=== PATIENT | male | born 1960 | race Caucasian/White ===

== ENCOUNTER 2016-11-16 20:54 | Emergency (ER) | payer BC ==
[~2016-11-16] VITALS: Ht 177.8 cm; Wt 95.8 kg
[~2016-11-16 20:54] MED LIST: [UNRECOGNIZED DRUG - CODE] PO
[2016-11-16 21:02] VITALS: Ht 177.8 cm; Wt 95.8 kg
[2016-11-16] MEDS ORDERED: SODIUM CHLORIDE 0.9% 1000ML 1,000 ML IV STA (21:35)
[2016-11-16 21:40] LABS: MANUAL MICROSCOPIC REQUIRED? NO; REVIEW REQ? NO; URINE APPEARANCE CLEAR (CLEAR); URINE BILIRUBIN NEG (NEG); URINE COLOR YELLOW; URINE EPITHELIAL CELL AUTO 0-5 /lpf (0-5); URINE NITRITE NEG (NEG); URINE PH 5.5 (4.5-7.5); URINE SPECIFIC GRAVITY 1.019 (1.000-1.030); UROBILINOGEN NEG (NEG); ZZUR CULT IF INDIC CLEAN CATCH NO
[2016-11-16 21:40] LABS: BASO % 0.2 %; BASO ABS # 0.02 K/uL (0-0.2); COMPLETE YES; EOS % 0.7 %; IG% 0.2 %; LYMPH % 14.4 %; LYMPH ABS # 1.91 K/uL (1.2-3.4); MEAN CELL VOLUME 88.4 fL (80-100); MEAN CORPUSCULAR HEMOGLOBIN 31.7 pg (25-34); MEAN CORPUSCULAR HGB CONC 35.9 g/dl (32-36); MONO % 11.7 %; NEUT % 72.8 %; PLATELET COUNT 231 K/uL (130-400); RED BLOOD COUNT 4.98 M/uL (4.7-6.1); WHITE BLOOD COUNT 13.22 K/uL (4.8-10.8)
[2016-11-16 21:58] LABS: BUN/CREATININE RATIO 10.6 (10-20); CALCIUM 8.9 mg/dl (8.5-10.1); CREATININE 1.2 mg/dl (0.60-1.40); POTASSIUM 3.7 mmol/L (3.5-5.1)
[2016-11-16] MEDS ORDERED: MESA0.37 PO (22:08)
[2016-11-16] MEDS ORDERED: PRLSR20 PO (22:09)
[2016-11-16] MEDS ORDERED: HYOS1TAB PO (22:10)
[2016-11-16] MEDS ORDERED: ZNTT/150 PO (22:12)
[2016-11-16] MEDS ORDERED: ONDANSETRON INJ 2 MG/ML 2 ML VIAL IV STA (23:04)
[2016-11-16] MEDS ORDERED: HYDROmorphone INJ 0.5 MG/0.5 ML SYR IV STA (23:04)
[2016-11-16] MEDS ORDERED: OPTIRAY 320 IV PRN (23:15)
[2016-11-16 23:46] VITALS: TEMP 36.8
[2016-11-17] MEDS ORDERED: AMOXICILLIN/CLAVULANATE TAB 875 MG TAB PO STA (00:56)
[2016-11-17] MEDS ORDERED: NORCO 5/325MG HOME PACK PO ONE (01:00)
[2016-11-17] MEDS ORDERED: AMOX875T PO (01:02)
[2016-11-17 01:12] VITALS: BP 120/82; PULSE 91; O2SAT 94
--- NOTE | 2016-11-17 02:45 | EMERGENCY ROOM VISIT NOTE ---
History Report prepared by Lore: Telly Stuart Under the Supervision of: Dr. Rad Huggins M.D. First contact with patient: 21:35 Chief Complaint: ABDOMINAL PAIN Stated Complaint: IRRITABLE GUTS Nursing Triage Summary: Lower abdominal pain, patient took "3 times the dose of laxative" because he felt constipated. States pain was higher prior now lower abdominal pain. History of Ulcerative Colitits. Denies bloody stools. Also c/o hesitancy with urination. History of Present Illness The patient is a 56 year old male who presents to the Emergency Room with complaints of constant abdominal pain starting two nights ago. He currently rates his discomfort as a 6/10 in severity. The patient states that the pain does from his abdomen to his rectum. He additionally states that he has a history of ulcerative colitis, and he takes pills and suppository, and he has not had an episode for the past four years. He states that he thought that he was constipated due to a lot of cheese, however he has taken laxatives and flushed himself out. He additionally states that he has neck pain, though he states that it is chronic due to arthritis. Pt denies LOC, headache, fevers, chills, diaphoresis, visual changes, chest pain, breathing difficulties, nausea , vomiting, back pain, melena, hematochezia, urinary symptoms, numbness, weakness, lymphadenopathy, rash, or other complaints. Source of History: patient Onset: two nights ago Position: abdomen Symptom Intensity: 6/10 Timing: constant Review of Systems See HPI for pertinent positives and negatives. A total of ten systems were reviewed and were otherwise negative. Past Medical & Surgical Medical Problems: (1) Colitis (2) Esophagitis (3) s/p arthroscopic surgery right knee (4) Tobacco user Family History Diabetes mellitus FH: cancer FH: heart disease Hypertension Social History Smoking Status: Current Some Day Smoker Alcohol Use: occasionally Drug Use: none Marital Status: Housing Status: lives with family Occupation Status: employed Current/Historical Medications Scheduled Amoxicillin & Pot Clavulanate (Augmentin 875-125 mg), 875 MG PO BID Mesalamine (Apriso), 0.375 MG PO QID Omeprazole (Prilosec), 20 MG PO DAILY Scheduled PRN Hyoscyamine Sulfate (Levsin), 0.125 MG PO Q6H PRN for CRAMPING Ranitidine (Zantac), 150 MG PO BID PRN for GERD Allergies Coded Allergies: Latex (Verified Allergy, Intermediate, RASH, 08/13/12) Morphine (Verified Allergy, Intermediate, HIVES, 05/30/14) Physical Exam Vital Signs Date Time Temp Pulse Resp B/P Pulse Ox O2 Delivery O2 Flow Rate FiO2 11/17/16 01:12 91 16 120/82 94 11/17/16 00:34 92 18 104/73 95 Room Air 11/16/16 23:46 36.8 90 16 123/73 95 Room Air 11/16/16 22:18 36.8 88 16 131/75 96 Room Air 11/16/16 21:02 37.2 109 18 132/87 95 Room Air Physical Exam GENERAL: Awake, alert, well-appearing, in no distress HENT: Normocephalic, atraumatic. Oropharynx unremarkable. EYES: Normal conjunctiva. Sclera non-icteric. NECK: Supple. No nuchal rigidity. FROM. No JVD. RESPIRATORY: Clear to auscultation. CARDIAC: Regular rate, normal rhythm. Extremities warm and well perfused. Pulses equal. ABDOMEN: Left lower quadrant tenderness. Soft, non-distended. No rebound or guarding. No masses. RECTAL: Deferred. MUSCULOSKELETAL: Chest examination reveals no tenderness. The back is symmetrical on inspection without obvious abnormality. There is no CVA tenderness to palpation. No joint edema. LOWER EXTREMITIES: Calves are equal size bilaterally and non-tender. No edema. No discoloration. NEURO: Normal sensorium. No sensory or motor deficits noted. SKIN: No rash or jaundice noted. Medical Decision & Procedures ER Provider Diagnostic Interpretation: Radiology results as stated below per my review and radiologist interpretation CT ABDOMEN & PELVIS: Sigmoid diverticulitis with inflammatory changes. No abscess. Mesenteric and retroperitoneal nodes. Too small to characterize low attenuation focus in the right kidney. Laboratory Results 11/16/16 21:20 Red Blood Count 4.98, Mean Corpuscular Volume 88.4, Mean Corpuscular Hemoglobin 31.7, Mean Corpuscular Hemoglobin Concent 35.9, Mean Platelet Volume 10.0, Neutrophils (%) (Auto) 72.8, Lymphocytes (%) (Auto) 14.4, Monocytes (%) (Auto) 11.7, Eosinophils (%) (Auto) 0.7, Basophils (%) (Auto) 0.2, Neutrophils # (Auto ) 9.62, Lymphocytes # (Auto) 1.91, Monocytes # (Auto) 1.55, Eosinophils # (Auto ) 0.09, Basophils # (Auto) 0.02 11/16/16 21:20 Test 11/16/16 21:15 11/16/16 21:20 Urine Color YELLOW Urine Appearance CLEAR (CLEAR) Urine pH 5.5 (4.5-7.5) Urine Specific Randolph 1.019 (1.000-1.030) Urine Protein NEG (NEG) Urine Glucose (UA) NEG (NEG) Urine Ketones NEG (NEG) Urine Occult Blood NEG (NEG) Urine Nitrite NEG (NEG) Urine Bilirubin NEG (NEG) Urine Urobilinogen NEG (NEG) Urine Leukocyte Esterase TRACE (NEG) Urine WBC (Auto) 1-5 /hpf (0-5) Urine RBC (Auto) 0-4 /hpf (0-4) Urine Hyaline Casts (Auto) 1-5 /lpf (0-5) Urine Epithelial Cells (Auto) 0-5 /lpf (0-5) Urine Bacteria (Auto) NEG (NEG) White Blood Count 13.22 K/uL (4.8-10.8) Red Blood Count 4.98 M/uL (4.7-6.1) Hemoglobin 15.8 g/dL (14.0-18.0) Hematocrit 44.0 % (42-52) Mean Corpuscular Volume 88.4 fL (80-100) Mean Corpuscular Hemoglobin 31.7 pg (25-34) Mean Corpuscular Hemoglobin Concent 35.9 g/dl (32-36) Platelet Count 231 K/uL (130-400) Mean Platelet Volume 10.0 fL (7.4-10.4) Neutrophils (%) (Auto) 72.8 % Lymphocytes (%) (Auto) 14.4 % Monocytes (%) (Auto) 11.7 % Eosinophils (%) (Auto) 0.7 % Basophils (%) (Auto) 0.2 % Neutrophils # (Auto) 9.62 K/uL (1.4-6.5) Lymphocytes # (Auto) 1.91 K/uL (1.2-3.4) Monocytes # (Auto) 1.55 K/uL (0.11-0.59) Eosinophils # (Auto) 0.09 K/uL (0-0.5) Basophils # (Auto) 0.02 K/uL (0-0.2) RDW Standard Deviation 41.1 fL (36.4-46.3) RDW Coefficient of Variation 12.9 % (11.5-14.5) Immature Granulocyte % (Auto) 0.2 % Immature Granulocyte # (Auto) 0.03 K/uL (0.00-0.02) Anion Gap 10.0 mmol/L (3-11) Est Creatinine Clear Calc Drug Dose 78.9 ml/min Estimated GFR () 77.3 Estimated GFR (Non- 66.7 BUN/Creatinine Ratio 10.6 (10-20) Calcium Level 8.9 mg/dl (8.5-10.1) Total Bilirubin 0.9 mg/dl (0.2-1) Aspartate Amino Transf (AST/SGOT) 13 U/L (15-37) Alanine Aminotransferase (ALT/SGPT) 34 U/L (12-78) Alkaline Phosphatase 89 U/L (45-117) Total Protein 7.8 gm/dl (6.4-8.2) Albumin 3.8 gm/dl (3.4-5.0) Globulin 4.0 gm/dl (2.5-4.0) Albumin/Globulin Ratio 1.0 (0.9-2) Lipase 89 U/L (73-393) Laboratory results reviewed by me Medications Administered Medications (Trade) Dose Ordered Sig/Luci Route Start Time Stop Time Status Last Admin Dose Admin Sodium Chloride (Nss 1000ml) 1,000 ml @ 999 mls/hr Q1H1M STAT IV 11/16/16 21:35 11/16/16 22:35 DC 11/16/16 21:47 999 MLS/HR Hydromorphone HCl (Dilaudid Inj) 0.5 mg NOW STAT IV 11/16/16 23:04 11/16/16 23:05 DC 11/16/16 23:19 0.5 MG Ondansetron HCl (Zofran Inj) 4 mg NOW STAT IV 11/16/16 23:04 11/16/16 23:05 DC 11/16/16 23:19 4 MG Amoxicillin/ Clavulanate Potassium (Augmentin Tab) 875 mg NOW STAT PO 11/17/16 00:56 11/17/16 00:59 DC 11/17/16 01:09 875 MG Acetaminophen/ Hydrocodone Bitart ([place] 5/325mg Home Pack) 1 homepack UD ONCE PO 11/17/16 01:00 11/17/16 01:01 DC 11/17/16 01:08 1 HOMEPACK ED Course 2135: Sodium Chloride 1000 ml @ 999 mls/hr IV 2255: The patient was evaluated in room B2. A complete history and physical exam was performed. 2304: Zofran Inj 4mg IV, Dilaudid Inj 0.5mg IV 0056: Augmentin Tab 875mg PO 0100: [place] 5/325mg 1 Home Pack PO 0104: I reevaluated the patient. Discussed results and discharge instructions: He verbalized understanding and agreement. The patient is ready for discharge. Medical Decision Triage Nursing notes reviewed. The patient's presentation and history were concerning for abdominal pain. Etiologies such as appendicitis, diverticulitis, obstruction, inflammatory bowel disease, renal colic, PUD, biliary pathology, pancreatitis, mesenteric ischemia, aortic pathology, infections, genitourinary, UTI, perforated viscus, as well as others were entertained. the patient was evaluated. Clinically was doing well. He was hydrated. He was given Dilaudid and Zofran. This worked well to control his pain. The patient had a mild leukocytosis on CBC. Chemistry panel was unremarkable. LFTs and lipase were unremarkable. The patient underwent CT imaging and this revealed diverticulitis. No abscess or perforation. The patient was treated with Augmentin as he declined metronidazole in the past as this made him very sick. The patient was given a home pack of [place]. He'll follow-up closely as an outpatient. If he worsens in any way he will be back. By the evaluation outlined above other emergent etiologies such as those listed in the differential, as well as others, were deemed relatively unlikely. The patient and were informed about the findings as listed above. All questions were answered and they were very pleased with the treatment. Return instructions were outlined and the patient was discharged in stable condition. The patient was referred to to his PCP for follow-up this week for a recheck of the current condition. The chart was completed utilizing [employer] voice recognition software. Grammatical errors, random word insertions, pronoun errors, and incomplete sentences are an occasional consequence of this system due to software limitations, ambient noise, and hardware issues. Any formal questions or concerns about the content, text, or information contained within the body of this dictation should be directly addressed to the physician for clarification. Impression Primary Impression: Diverticulitis Scribe Attestation The scribe's documentation has been prepared under my direction and personally reviewed by me in its entirety. I confirm that the note above accurately reflects all work, treatment, procedures, and medical decision making performed by me. Departure Information Dispostion Home / Self-Care Prescriptions Amoxicillin & Pot Clavulanate (Augmentin 875-125 mg) 1 Tab Tab 875 MG PO BID, #18 TAB Prov: Rad Huggins MD 11/17/16 Referrals Benjamin Blue MD (PCP) Forms Call Back Authorization, HOME CARE DOCUMENTATION FORM, IMPORTANT VISIT INFORMATION Patient Instructions [facility] Additional Instructions DIVERTICULITIS INSTRUCTIONS: DO NOT drive, drink alcohol, operate machinery, or perform dangerous activities today. You were given medications in the ER that can affect your ability to safely function or operate a vehicle. Amoxicillin Clavulanate (Augmentin) 875mg: Take one pill twice daily for 10 days for your bowel infection. All antibiotics can cause diarrhea. If this occurs and you feel worse or it does not resolve in 1-2 days follow up with your doctor or return to the Emergency Department as this could be signs of serious underlying problems. Any medication can cause an allergic reaction, stop the pills immediately and return to the ER for rash, hives, breathing difficulties, or swelling. Hydrocodone/acetaminophen 5/325mg: Take 1-2 pills every 6 hours as needed for pain. Avoid additional Acetaminophen/Tylenol, alcohol, operating machinery or dangerous equipment, working on ladders or roofs, DRIVING, or situations where being under the influence may be dangerous. It is recommended to use a stool softener such as Colace, 100mg twice daily while taking this medication to avoid constipation. Ibuprofen(Motrin, Advil) may be used for fever or pain. Use 600mg every six hours as needed. Take with food. Avoid using more than 2400mg in a 24 hour period. Do not use 2400mg per day for more than three consecutive days without physician direction. Prolonged inappropriate use can lead to stomach upset or ulcers. Rest and drink plenty of fluids as tolerated. Slow sips of water or sports drinks are recommended instead of large amounts all at once. Continue current medications. Once your stomach is settled start with a clear liquid diet (jello, soup broth, etc.) and then advance as tolerated. You should avoid full, heavy meals for about 24 hrs from the time your symptoms resolved. Return to the ER immediately for worsening or persistent abdominal pain, vomiting, fevers, chest pains, difficulty breathing, black or bloody stools, worsening of your condition, or as needed. Follow up with your primary physician in 2-3 days for a recheck of your current condition.
--- NOTE | 2016-11-17 06:50 | DIAGNOSTIC IMAGING REPORT ---
ABDOMEN AND PELVIS CT WITH IV CONTRAST CT DOSE: 635.68 mGy.cm HISTORY: Pain. Nausea. lower abd pain, h/o of colitis. Elevated WBC TECHNIQUE: Multiaxial CT images of the abdomen and pelvis were performed following the use of intravenous contrast. COMPARISON STUDY: 72,014 FINDINGS: Lung bases are clear. Liver spleen and pancreas are unremarkable. Several small indeterminate retroperitoneal nodes unchanged from the prior study. Bowel pattern within the abdomen is nonobstructive. Within the pelvis there is evidence for acute proximal to mid sigmoid diverticulitis. Moderate pericolonic infiltrative change. No evidence for abscess collection or obstruction. Kidneys negative for hydronephrosis. Small upper pole right renal cortical cyst. IMPRESSION: Acute proximal to mid sigmoid diverticulitis. Moderate pericolonic infiltrative infiltrative change. No evidence for abscess collection or obstruction. Electronically signed by: Catrachito Duval M.D. 11/17/2016 6:49 AM Dictated Date/Time: 11/17/2016 6:47 AM
== END 2016-11-17 01:14 | disposition home or self-care (01) ==
LOC: C.EDB 20:55
DX: K57.92 Diverticulitis of intestine, part unspecified, without perforation or abscess without bleeding (principal); K51.90 Ulcerative colitis, unspecified, without complications; K20.9 Esophagitis, unspecified; F17.200 Nicotine dependence, unspecified, uncomplicated; Z98.890 Other specified postprocedural states; Z83.3 Family history of diabetes mellitus; Z82.49 Family history of ischemic heart disease and other diseases of the circulatory system; Z79.899 Other long term (current) drug therapy

== ENCOUNTER 2021-02-16 10:26 | Inpatient (IN) ==
[2021-02-16] MEDS ORDERED: SODIUM CHLORIDE 0.9% 1000ML 1,000 ML IV SCH ×2 (11:30→17:41)
[2021-02-16 11:35] LABS: BUN Creatinine Ratio 14.8 (10-20); Calcium 8.2 mg/dl (8.5-10.1); Creatinine Clr Calc Pharmacy 81.7 ml/min; Est GFR (African American) 85.4 ml/min; Est GFR (Non-African American) 73.7 ml/min; Magnesium 2.1 mg/dl (1.8-2.4); Potassium 3.5 mmol/L (3.5-5.1)
[2021-02-16] MEDS ORDERED: LORazepam 2 MG/4 ML VIAL IV STA (11:38)
[2021-02-16 11:51] LABS: Albumin Globulin Ratio 0.8 (0.9-2); Bilirubin,Total 1.1 mg/dl (0.2-1); Globulin 3.6 gm/dl (2.5-4.0); Phosphorus 2.1 mg/dl (2.5-4.9); Total Protein 6.6 gm/dl (6.4-8.2)
[2021-02-16] MEDS ORDERED: POT PHOSPHATE MONOBASIC W/ SOD TAB PO STA (11:54)
[2021-02-16] MEDS ORDERED: CALCIUM GLUCONATE 1,000 MG/60 ML BAG IV STA (11:55)
[2021-02-16 11:57] LABS: Eosinophils # (auto) 0.02 K/uL (0-0.5); Eosinophils % (auto) 0.6 %; Hematocrit (blood only) 39.4 % (42-52); Immature Granulocytes # (auto) 0.02 K/uL (0.00-0.02); Immature Granulocytes % (auto) 0.6 %; Lymphocytes # (auto) 0.36 K/uL (1.2-3.4); Lymphocytes % (auto) 10.9 %; Mean Corpuscular Hemoglobin 31.9 pg (25-34); Mean Corpuscular Volume 96.8 fL (80-100); Mean Platelet Volume 8.8 fL (7.4-10.4); Monocytes # (auto) 0.01 K/uL (0.11-0.59); Monocytes % (auto) 0.3 %; Neutrophils # (auto) 2.88 K/uL (1.4-6.5); Neutrophils % (auto) 87.6 %; Platelet Count 189 K/uL (130-400); RDW Coefficient of Variation 14.6 % (11.5-14.5); RDW Standard Deviation 52.1 fL (36.4-46.3); Red Blood Count 4.07 M/uL (4.7-6.1); White Blood Count 3.29 K/uL (4.8-10.8)
[2021-02-16] MEDS: POTASSIUM CHLORIDE / WTR 10 MEQ/100 ML PLCT IV SCH ×2 (12:23→13:29)
[2021-02-16 13:28] LABS: Lyme Ab IgG w/WB Rflx Negative (Negative); Lyme Ab IgM w/WB Rflx Negative (Negative)
[2021-02-16] MEDS ORDERED: OPTIRAY 320 125ml IV ONE (14:01)
[2021-02-16] MEDS ORDERED: OPTIRAY 320 100ml IV ONE (14:01)
[2021-02-16] MEDS: METOPROLOL TARTRATE 1 MG/ML VIAL IV PRN ×2 (14:19→14:48)
--- NOTE | 2021-02-16 14:20 | CT Scan Report ---
CHEST CTA for PULMONARY ARTERIES CT DOSE: 1309.13 mGy.cm HISTORY: Atypical chest pain. TECHNIQUE: Multiaxial CT images of the chest were performed following the intravenous administration of contrast to evaluate the pulmonary arteries. Maximal intensity projection images were also obtaine d. A dose lowering technique was utilized adhering to the principles of ALARA. COMPARISON STUDY: None. FINDINGS: Normal caliber thoracic aorta with no evidence for dissection. Mild motion artifact results in suboptimal evaluation of the bibasilar segmental/subsegmental pulmonary arteries. However, no def inite filling defects within the pulmonary arteries to suggest a pulmonary embolus. Please refer to abdomen and pelvis CT for further evaluation of the abdominal structures. The thyroid gland e nhances normally. Normal caliber esophagus. The heart is normal in size. No pleural or pericardial ef fusions. A few prominent right paratracheal and right hilar lymph nodes which measure up to 9 mm in s hort axis diameter. No pneumothorax. The central airways are patent. A few bibasilar linear densities favor subsegmental atelectasis. Otherwise, no focal lung consolidations to suggest pneumonia. IMPRESSION: Mild motion artifact. However, no definite filling defects within the pulmonary arteries to suggest a pulmonary embolus. ACT 112: Negative or not required by law. Electronically signed by: Amor Harrison M.D. 02/16/2021 2:18 PM
--- NOTE | 2021-02-16 14:30 | CT Scan Report ---
ABDOMEN AND PELVIS CT WITH IV AND ORAL CONTRAST CT DOSE: HISTORY: Transabdominal pain. Ulcerative colitis flare. TECHNIQUE: Multiaxial CT images of the abdomen and pelvis were performed following the use of intrave nous and oral contrast. A dose lowering technique was utilized adhering to the principles of ALARA. COMPARISON STUDY: Abdomen and pelvis CT 01/21/2018. FINDINGS: No pneumoperitoneum. No pneumatosis. The liver, gallbladder, spleen, adrenal glands, and pa ncreas are unremarkable. The main portal vein is patent. Normal caliber abdominal aorta. There is mil d bilateral perinephric fat stranding/edema. This is slightly progressed in the interval. No hydronep hrosis. There is a 1 cm hypodense lesion within the upper pole the right kidney, unchanged. This favo rs a cyst. Focal heterogeneous area within the upper pole the left kidney remains unchanged and may r epresent scarring. A few prominent retroperitoneal lymph nodes are also stable and are therefore like ly benign. There is mild motion artifact. No pelvic free fluid. Moderate bladder wall thickening, unc hanged. Multiple colonic diverticula. Turd-ia-shupfaez bowel wall thickening of the descending colon with associated pericolonic fat stranding. Findings favor a nonspecific colitis and could be due to a n infectious or inflammatory process. The pericolonic fat stranding is most pronounced at the sigmoid colon. This is where the majority of the diverticula reside. Therefore, a superimposed acute diverti culitis could also have a similar appearance but is considered less likely. No evidence for bowel obs truction. Normal appendix. IMPRESSION: 1. Npad-ca-nkfamlwn bowel wall thickening of the descending colon and sigmoid colon with associated p ericolonic fat stranding. Findings favor a nonspecific colitis and could be due to an infectious or i nflammatory process. 2. The pericolonic fat stranding is most pronounced at the sigmoid colon. This is where the majority of the diverticula reside. Therefore, a superimposed acute diverticulitis could also have a similar a ppearance but is considered less likely. 3. Moderate bladder wall thickening, unchanged. Recommend correlation with urinalysis. 4. Mild bilateral perinephric edema/fat stranding has also slightly progressed. ACT 112: Negative or not required by law. Electronically signed by: Amor Harrison M.D. 02/16/2021 2:29 PM
--- NOTE | 2021-02-16 15:21 | Emergency Department Note ---
History of Present Illness General Chief complaint: Hand Injury/Pain Stated complaint: SHAKING /HAND NUMBNESS Time Seen by Provider: 02/16/21 11:13 Source: patient, family ( at the bedside) and RN notes reviewed Mode of arrival: ambulatory Limitations: no limitations History of Present Illness Provider complaint: Generalized weakness, shaking Maximum Pain Intensity: 0 This patient is a 60-year-old male who presents emergency department with complaints of diffuse shaking to the upper extremities. Patient woke up this morning and states he could not drink his coffee because he was shaking so much. Patient was evaluated in the emergency department yesterday and noted to have low magnesium and low phosphate. His electrolytes were repleted and he was hydrated with saline. Patient states he felt better but upon awakening this morning symptoms seem to develop again. He states he was able to eat dinner last night which was beef stew. He denies any fevers, chills, chest pain, s hortness of breath, vomiting. He does have history of ulcerative colitis and does have some diarrhea. 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 He has been on prednisone through gastroenterology which has improved his symptoms tremendously. He does deny blood in his stools. He states he did not receive the Covid vaccine. Home Medications Medication Instructions Recorded Confirmed Type dicyclomine 20 mg PO QID PRN 02/15/21 02/16/21 History losartan 50 mg PO HS 02/15/21 02/16/21 History omeprazole 20 mg PO DAILYBB 02/15/21 02/16/21 History prednisone 10 mg PO UD 02/15/21 02/16/21 History mesalamine 0.375 g PO QID 02/16/21 02/16/21 History Allergies Allergy/AdvReac Type Severity Reaction Status Date / Time latex Allergy Intermediate RASH Verified 02/16/21 12:26 morphine Allergy Intermediate HIVES Verified 02/16/21 12:26 Past Med/Surg History Medical History (Updated 02/19/21 @ 21:46 by Svetlana Matthews MD) Chronic neck pain Clostridium difficile infection Daily consumption of alcohol Dehydration Diverticulitis Esophagitis (Unknown) "EGD 2010 " HLD (hyperlipidemia) HTN (hypertension) Hypomagnesemia Hypophosphatemia Ulcerative colitis Surgical History (Updated 02/16/21 @ 17:01 by Gia Brar PA-C) H/O arthroscopic knee surgery Family History Father Prostate cancer Social History (Updated 02/16/21 @ 17:02 by Gia Brar PA-C) Smoking Status: Current every day smoker Tobacco Type: Cigars Second Hand Exposure: No; Hx Alcohol Use: Yes Alcohol type: wine Alcohol Intake Frequency: 4 or More x per/Week Alcohol Intake Frequency Comment: daily 1-2 drinks, last drink > 48 hrs Hx Substance Use: No Preferred Language: Monegasque Communication Ability: Effective Spiritual Minister Required: No Beliefs That Will Affect Care: None marital status: Current Living Situation: Spouse current occupational status: employed 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 and A total of 10 systems reviewed and were otherwise negative Physical Exam Vital Signs Vital Signs - 24 hr 02/16/21 10:42 02/16/21 11:04 02/16/21 11:10 Temperature 36.5 C Temperature Source Temporal Artery Scan Pulse Rate 138 H 133 H 130 H Pulse Rate from SpO2 Sensor 134 H 132 H Respiratory Rate 20 29 H 18 Respiratory Effort / Characteristics Non-Labored Respiratory Depth Normal Blood Pressure 129/68 131/68 Blood Pressure Mean 88 89 Pulse Oximetry 97 97 95 Oxygen Delivery Method Room Air Sepsis Recent Fever Within 48 Hours No Sepsis New/Unexplained Change in Mental Status N/A Sepsis Action Taken by Nursing No Action Required 02/16/21 11:20 02/16/21 11:30 02/16/21 11:34 Temperature Temperature Source Pulse Rate 132 H 132 H 137 H Pulse Rate from SpO2 Sensor 132 H 132 H 137 H Respiratory Rate 15 23 19 Respiratory Effort / Characteristics Respiratory Depth Blood Pressure 129/71 126/75 Blood Pressure Mean 90 92 Pulse Oximetry 95 92 92 Oxygen Delivery Method Sepsis Recent Fever Within 48 Hours Sepsis New/Unexplained Change in Mental Status Sepsis Action Taken by Nursing 02/16/21 11:40 02/16/21 11:50 02/16/21 12:00 Temperature Temperature Source Pulse Rate 133 H 136 H 132 H Pulse Rate from SpO2 Sensor 134 H 136 H 130 H Respiratory Rate 21 30 H 28 H Respiratory Effort / Characteristics Respiratory Depth Blood Pressure 124/73 Blood Pressure Mean 90 Pulse Oximetry 96 94 90 Oxygen Delivery Method Sepsis Recent Fever Within 48 Hours Sepsis New/Unexplained Change in Mental Status Sepsis Action Taken by Nursing 02/16/21 12:10 02/16/21 12:20 02/16/21 12:30 Temperature Temperature Source Pulse Rate 135 H 128 H 136 H Pulse Rate from SpO2 Sensor 128 H 128 H Respiratory Rate 32 H 31 H 18 Respiratory Effort / Characteristics Respiratory Depth Blood Pressure 142/98 H Blood Pressure Mean 112 Pulse Oximetry 94 90 Oxygen Delivery Method Sepsis Recent Fever Within 48 Hours Sepsis New/Unexplained Change in Mental Status Sepsis Action Taken by Nursing 02/16/21 12:40 02/16/21 12:50 02/16/21 13:00 Temperature Temperature Source Pulse Rate 130 H 137 H 133 H Pulse Rate from SpO2 Sensor 126 H 135 H 129 H Respiratory Rate 32 H 17 26 H Respiratory Effort / Characteristics Respiratory Depth Blood Pressure Blood Pressure Mean Pulse Oximetry 91 95 94 Oxygen Delivery Method Sepsis Recent Fever Within 48 Hours Sepsis New/Unexplained Change in Mental Status Sepsis Action Taken by Nursing 02/16/21 13:10 02/16/21 13:20 02/16/21 13:30 Temperature Temperature Source Pulse Rate 128 H 130 H 127 H Pulse Rate from SpO2 Sensor 135 H 130 H 127 H Respiratory Rate 14 19 26 H Respiratory Effort / Characteristics Respiratory Depth Blood Pressure 120/64 Blood Pressure Mean 82 Pulse Oximetry 94 96 94 Oxygen Delivery Method Sepsis Recent Fever Within 48 Hours Sepsis New/Unexplained Change in Mental Status Sepsis Action Taken by Nursing 02/16/21 13:40 02/16/21 13:50 02/16/21 14:12 Temperature Temperature Source Pulse Rate 121 H 126 H 123 H Pulse Rate from SpO2 Sensor 121 H 126 H 119 H Respiratory Rate 28 H 16 23 Respiratory Effort / Characteristics Respiratory Depth Blood Pressure Blood Pressure Mean Pulse Oximetry 95 93 94 Oxygen Delivery Method Sepsis Recent Fever Within 48 Hours Sepsis New/Unexplained Change in Mental Status Sepsis Action Taken by Nursing 02/16/21 14:20 02/16/21 14:21 02/16/21 14:25 Temperature Temperature Source Pulse Rate 120 H 120 H 107 H Pulse Rate from SpO2 Sensor 120 H 120 H 107 H Respiratory Rate 36 H 29 H 28 H Respiratory Effort / Characteristics Respiratory Depth Blood Pressure 119/67 113/70 Blood Pressure Mean 84 84 Pulse Oximetry 97 96 95 Oxygen Delivery Method Sepsis Recent Fever Within 48 Hours Sepsis New/Unexplained Change in Mental Status Sepsis Action Taken by Nursing 02/16/21 14:30 02/16/21 14:40 02/16/21 14:49 Temperature Temperature Source Pulse Rate 103 H 108 H 110 H Pulse Rate from SpO2 Sensor 103 H 108 H 110 H Respiratory Rate 26 H 24 28 H Respiratory Effort / Characteristics Respiratory Depth Blood Pressure 100/70 110/66 Blood Pressure Mean 80 80 Pulse Oximetry 94 94 94 Oxygen Delivery Method Sepsis Recent Fever Within 48 Hours Sepsis New/Unexplained Change in Mental Status Sepsis Action Taken by Nursing 02/16/21 14:50 02/16/21 15:00 02/16/21 15:10 Temperature Temperature Source Pulse Rate 110 H 111 H 112 H Pulse Rate from SpO2 Sensor 110 H 111 H 112 H Respiratory Rate 22 26 H 25 H Respiratory Effort / Characteristics Respiratory Depth Blood Pressure 92/63 L Blood Pressure Mean 72 Pulse Oximetry 94 93 94 Oxygen Delivery Method Sepsis Recent Fever Within 48 Hours Sepsis New/Unexplained Change in Mental Status Sepsis Action Taken by Nursing 02/16/21 15:20 02/16/21 15:42 02/16/21 15:50 Temperature Temperature Source Pulse Rate 111 H 112 H 111 H Pulse Rate from SpO2 Sensor 109 H 112 H 111 H Respiratory Rate 23 23 31 H Respiratory Effort / Characteristics Respiratory Depth Blood Pressure 105/68 Blood Pressure Mean 80 Pulse Oximetry 94 95 94 Oxygen Delivery Method Sepsis Recent Fever Within 48 Hours Sepsis New/Unexplained Change in Mental Status Sepsis Action Taken by Nursing Vital signs reviewed. General: chronically ill-appearing 60 yo male, in no significant distress. HEENT: No scleral icterus, PERRLA, neck supple. Atraumatic. Cardiovascular: Regular rate and rhythm, no extra sounds. Pulmonary: Clear to auscultation bilaterally, normal work of breathing. Abdomen: Soft, nontender, nondistended, positive bowel sounds. Musculoskeletal: Atraumatic, no peripheral edema. Neurologic: Patient awake alert and oriented x 3, full strength in all 4 ext remities. Cranial nerves 2 through 12 grossly intact. Mild tremor peripherally noted. Skin: Warm, dry, no rash Course Administered Medications Enoxaparin Sodium (Enoxaparin Inj 40 Mg/0.4 Ml Syr) 40 mg SQ HS [facility] Stop: 03/19/21 20:59 Last Admin: 02/18/21 20:06 Dose: 40 mg Documented by: [id number] Admin: 02/17/21 22:04 Dose: Not Given Documented by: [id number] Folic Acid (Folic Acid 1 Mg Tab) 1 mg PO QAM [facility] Stop: 03/18/21 18:29 Last Admin: 02/19/21 09:27 Dose: 1 mg Documented by: [id number] Admin: 02/18/21 08:37 Dose: 1 mg Documented by: [id number] Admin: 02/17/21 08:42 Dose: 1 mg Documented by: [id number] Admin: 02/16/21 20:56 Dose: 1 mg Documented by: [id number] Ertapenem 1,000 mg/ Sodium (Chloride) 60 mls @ 100 mls/hr IV Q24H [facility] Stop: 03/04/21 11:59 Last Infusion: 02/19/21 13:33 Dose: 0 mls/hr Documented by: [id number] Admin: 02/19/21 12:36 Dose: 100 mls/hr Documented by: [id number] Infusion: 02/18/21 13:24 Dose: 0 mls/hr Documented by: [id number] Admin: 02/18/21 12:48 Dose: 100 mls/hr Documented by: [id number] Losartan Potassium (Losartan Potassium 50 Mg Tab) 50 mg PO [facility] Stop: 03/21/21 20:59 Last Admin: 02/19/21 21:01 Dose: 50 mg Documented by: [id number] Mesalamine (Mesalamine 0.375gm 1 Ea) 1 ea PO QID [facility] Stop: 03/20/21 16:59 Last Admin: 02/19/21 21:02 Dose: 1 ea Documented by: [id number] Admin: 02/19/21 18:33 Dose: 1 ea Documented by: [id number] Admin: 02/19/21 12:35 Dose: 1 ea Documented by: [id number] Admin: 02/19/21 09:28 Dose: 1 ea Documented by: [id number] Admin: 02/18/21 20:05 Dose: 1 ea Documented by: [id number] Admin: 02/18/21 17:22 Dose: 1 ea Documented by: [id number] [facility]oprazole S[facility] ([facility] 40 Mg Tab[facility] Stop: 03/19/21 06:29 Last Admin: 02/19/21 05:47 Dose: 40 mg Documented by: [id number] Admin: 02/18/21 06:43 Dose: 40 mg Documented by: [id number] Admin: 02/17/21 06:07 Dose: 40 mg Documented by: [id number] Prednisone (Prednisone 10 Mg Tablet) 10 mg PO DAILY [facility] Stop: 03/21/21 08:59 Last Admin: 02/19/21 09:31 Dose: 10 mg Documented by: [id number] Thiamine HCl (Thiamine Hcl 100 Mg Tab) 100 mg PO QAM [facility] Stop: 03/18/21 18:14 Last Admin: 02/19/21 09:27 Dose: 100 mg Documented by: [id number] Admin: 02/18/21 08:38 Dose: 100 mg Documented by: [id number] Admin: 02/17/21 08:42 Dose: 100 mg Documented by: [id number] Admin: 02/16/21 20:38 Dose: 100 mg Documented by: [id number] Discontinued Medications Sodium Chloride (Nss 1000ml) 1,000 mls @ 125 mls/hr IV .Q8H [facility] Stop: 02/16/21 19:29 Last Infusion: 02/16/21 17:46 Dose: 0 mls/hr Documented by: [id number] Admin: 02/16/21 11:21 Dose: 125 mls/hr Documented by: [id number] Lorazepam (Ativan) 2 mg in 4 mls @ 4 mls/min IV NOW STA Stop: 02/16/21 11:39 Last Admin: 02/16/21 11:51 Dose: 4 mls/min Documented by: [id number] Potassium Chloride (K Diogo / Wtr) 10 meq in 100 mls @ 100 mls/hr IV Q1H [facility] Stop: 02/16/21 13:59 Last Infusion: 02/16/21 14:29 Dose: 100 mls/hr Documented by: [id number] Admin: 02/16/21 13:29 Dose: 100 mls/hr Documented by: [id number] Infusion: 02/16/21 13:23 Dose: 100 mls/hr Documented by: [id number] Admin: 02/16/21 12:23 Dose: 100 mls/hr Documented by: [id number] Calcium Gluconate () 1,000 mg in 60 mls @ 240 mls/hr IV NOW STA Stop: 02/16/21 12:09 Last Infusion: 02/16/21 12:19 Dose: 240 mls/hr Documented by: [id number] Admin: 02/16/21 12:04 Dose: 240 mls/hr Documented by: [id number] Multivitamins 10 ml/ Thiamine HCl 100 mg/ Folic Acid 1 mg/Sodium Chloride 1,011.2 mls @ 1,011.2 mls/hr IV .Q1H [facility] Stop: 02/16/21 17:19 Last Infusion: 02/16/21 19:37 Dose: 0 mls/hr Documented by: [id number] Admin: 02/16/21 18:31 Dose: 1,011.2 mls/hr Documented by: [id number] Sodium Chloride (Nss 1000ml) 1,000 mls @ 125 mls/hr IV .Q8H [facility] Stop: 02/17/21 01:40 Last Infusion: 02/17/21 04:00 Dose: 0 mls/hr Documented by: [id number] Admin: 02/16/21 19:41 Dose: 125 mls/hr Documented by: [id number] Piperacillin Sod/Tazobactam (Sod 4.5 gm/ Dextrose) 120 mls @ 200 mls/hr IV NOW ONE; Protocol Stop: 02/16/21 18:50 Last Infusion: 02/16/21 19:38 Dose: 0 mls/hr Documented by: [id number] Admin: 02/16/21 18:30 Dose: 200 mls/hr Documented by: [id number] Piperacillin Sod/Tazobactam (Sod 3.375 gm/ Dextrose) 115 mls @ 28.75 mls/hr IV Q8H [facility]; Protocol Stop: 02/27/21 00:00 Last Infusion: 02/18/21 11:07 Dose: 0 mls/hr Documented by: [id number] Admin: 02/18/21 07:44 Dose: 28.8 mls/hr Documented by: [id number] Infusion: 02/18/21 05:10 Dose: 0 mls/hr Documented by: [id number] Admin: 02/18/21 01:08 Dose: 28.8 mls/hr Documented by: [id number] Infusion: 02/17/21 20:42 Dose: 28.8 mls/hr Documented by: [id number] Admin: 02/17/21 16:42 Dose: 28.8 mls/hr Documented by: [id number] Infusion: 02/17/21 12:50 Dose: 0 mls/hr Documented by: [id number] Admin: 02/17/21 08:44 Dose: 28.8 mls/hr Documented by: [id number] Infusion: 02/17/21 04:11 Dose: 0 mls/hr Documented by: [id number] Admin: 02/17/21 00:08 Dose: 28.8 mls/hr Documented by: [id number] Potassium Phosphate 6 mmol/ (Sodium Chloride) 102 mls @ 88 mls/hr IV ONE ONE Stop: 02/16/21 19:24 Last Infusion: 02/16/21 20:53 Dose: 0 mls/hr Documented by: [id number] Admin: 02/16/21 18:31 Dose: 88 mls/hr Documented by: [id number] Lactated Ringer's (Lr) 1,000 mls @ 500 mls/hr IV .Q2H ONE Stop: 02/17/21 07:40 Last Infusion: 02/17/21 08:10 Dose: 0 mls/hr Documented by: [id number] Admin: 02/17/21 06:07 Dose: 500 mls/hr Documented by: [id number] Ioversol (Optiray 320 125ml) 119 ml IV ONCE ONE Stop: 02/16/21 14:02 Last Admin: 02/16/21 14:02 Dose: 119 ml Documented by: [id number] Metoprolol Tartrate (Metoprolol Tartrate 1 Mg/Ml Vial) 5 mg IV Q5M PRN PRN Reason: Tachycardia Stop: 03/18/21 12:53 Last Admin: 02/16/21 14:48 Dose: 5 mg Documented by: [id number] Admin: 02/16/21 14:19 Dose: 5 mg Documented by: [id number] Miscellaneous (Mesalamine 0.375 Gram Capsule,Extended Release 24hr - Order Awaiting Action) 1 ea N/A QS [facility] Stop: 03/19/21 19:59 Last Admin: 02/18/21 07:21 Dose: Not Given Documented by: [id number] Admin: 02/18/21 02:23 Dose: Not Given Documented by: [id number] Admin: 02/17/21 22:04 Dose: Not Given Documented by: [id number] Pneumococcal Polyvalent Vaccine (Pneumococcal Polysaccharides 25 Mcg/0.5 Ml Vial/Syr) 25 mcg IM .ONCE ONE Stop: 02/16/21 18:18 Last Admin: 02/18/21 07:21 Dose: Not Given Documented by: [id number] Potassium Phosphate (Pot Phosphate Monobasic W/ Sod Tab) 2 tab PO NOW STA Stop: 02/16/21 11:55 Last Admin: 02/16/21 12:04 Dose: 2 tab Documented by: [id number] Prednisone (Prednisone 20 Mg Tab) 20 mg PO DAILY [facility]; Taper Stop: 03/02/21 17:40 Last Admin: 02/18/21 08:37 Dose: 20 mg Documented by: [id number] Admin: 02/17/21 08:42 Dose: 20 mg Documented by: [id number] Admin: 02/16/21 20:38 Dose: 20 mg Documented by: [id number] Medical Decision Making Differential Diagnosis Overdose, toxicologic, infection, hypoglycemia, electrolyte abnormalities, cardiac sources, intracerebral event, neurologic, trauma, as well as other pathologies. Medical Records Attestation: I reviewed the patient's medical records. Home Medications Current Medication List: was personally reviewed by me Laboratory Data Attestation: I reviewed the patient's lab results. Result diagrams: 02/19/21 07:08 02/19/21 07:08 Lab Results 02/16/21 02/16/21 02/16/21 Range/Units 11:03 11:03 11:03 WBC 3.29 L D (4.8-10.8) K/uL RBC 4.07 L (4.7-6.1) M/uL Hgb 13.0 L (14.0-18.0) g/dL Hct 39.4 L (42-52) % MCV 96.8 (80-100) fL MCH 31.9 (25-34) pg MCHC 33.0 (32-36) g/dL RDW Std Deviation 52.1 H (36.4-46.3) fL RDW Coeff of Riley 14.6 H (11.5-14.5) % Plt Count 189 (130-400) K/uL MPV 8.8 (7.4-10.4) fL Immature Gran % (Auto) 0.6 % Neut % (Auto) 87.6 % Lymph % (Auto) 10.9 % [place] % (Auto) 0.3 % Eos % (Auto) 0.6 % Baso % (Auto) 0.0 % Neut # (Auto) 2.88 (1.4-6.5) K/uL Lymph # (Auto) 0.36 L (1.2-3.4) K/uL [place] # (Auto) 0.01 L (0.11-0.59) K/uL Eos # (Auto) 0.02 (0-0.5) K/uL Baso # (Auto) 0.00 (0-0.2) K/uL Immature Gran # (Auto) 0.02 (0.00-0.02) K/uL Sodium 141 (136-145) mmol/L Potassium 3.5 (3.5-5.1) mmol/L Chloride 108 H (98-107) mmol/L Carbon Dioxide 29 (21-32) mmol/L Anion Gap 4.0 (3-11) BUN 16 (7-18) mg/dl Creatinine 1.08 (0.6-1.4) mg/dl Est Cr Clr Drug Dosing 81.7 ml/min Est GFR ( Amer) 85.4 ml/min Est GFR (Non-Af Amer) 73.7 ml/min BUN/Creatinine Ratio 14.8 (10-20) Glucose 116 H (70-99) mg/dl Lactate (0.4-2.0) mmol/L Calcium 8.2 L (8.5-10.1) mg/dl Phosphorus 2.1 L (2.5-4.9) mg/dl Magnesium 2.1 (1.8-2.4) mg/dl Total Bilirubin 1.1 H (0.2-1) mg/dl AST 17 (15-37) U/L ALT 40 (12-78) U/L Alkaline Phosphatase 102 (45-117) U/L Total Protein 6.6 (6.4-8.2) gm/dl Albumin 3.0 L (3.4-5.0) gm/dl Globulin 3.6 (2.5-4.0) gm/dl Albumin/Globulin Ratio 0.8 L (0.9-2) Ethyl Alcohol mg/dL (0-3) mg/dl Anaplasma Smear See Comment A. phagocytophilum DNA Not Detected (Not Detected) Babesia microti IgG Ab (<1:64) titer Babesia microti IgM Ab (<1:20) titer Babesia Interpretation Lyme Disease IgG Ab (Negative) Lyme Disease IgM Ab (Negative) COVID-19 Eval Order SARS-CoV-2 (PCR) (Negative) 02/16/21 02/16/2121 Range/Units 11:03 11:03 12:14 WBC (4.8-10.8) K/uL RBC (4.7-6.1) M/uL Hgb (14.0-18.0) g/dL Hct (42-52) % MCV (80-100) fL MCH (25-34) pg MCHC (32-36) g/dL RDW Std Deviation (36.4-46.3) fL RDW Coeff of Riley (11.5-14.5) % Plt Count (130-400) K/uL MPV (7.4-10.4) fL Immature Gran % (Auto) % Neut % (Auto) % Lymph % (Auto) % [place] % (Auto) % Eos % (Auto) % Baso % (Auto) % Neut # (Auto) (1.4-6.5) K/uL Lymph # (Auto) (1.2-3.4) K/uL [place] # (Auto) (0.11-0.59) K/uL Eos # (Auto) (0-0.5) K/uL Baso # (Auto) (0-0.2) K/uL Immature Gran # (Auto) (0.00-0.02) K/uL Sodium (136-145) mmol/L Potassium (3.5-5.1) mmol/L Chloride (98-107) mmol/L Carbon Dioxide (21-32) mmol/L Anion Gap (3-11) BUN (7-18) mg/dl Creatinine (0.6-1.4) mg/dl Est Cr Clr Drug Dosing ml/min Est GFR ( Amer) ml/min Est GFR (Non-Af Amer) ml/min BUN/Creatinine Ratio (10-20) Glucose (70-99) mg/dl Lactate (0.4-2.0) mmol/L Calcium (8.5-10.1) mg/dl Phosphorus (2.5-4.9) mg/dl Magnesium (1.8-2.4) mg/dl Total Bilirubin (0.2-1) mg/dl AST (15-37) U/L ALT (12-78) U/L Alkaline Phosphatase (45-117) U/L Total Protein (6.4-8.2) gm/dl Albumin (3.4-5.0) gm/dl Globulin (2.5-4.0) gm/dl Albumin/Globulin Ratio (0.9-2) Ethyl Alcohol mg/dL < 3.0 (0-3) mg/dl Anaplasma Smear A. phagocytophilum DNA (Not Detected) Babesia microti IgG Ab <1:64 (<1:64) titer Babesia microti IgM Ab <1:20 (<1:20) titer [facility] Interpretation see note Lyme Disease IgG Ab Negative (Negative) Lyme Disease IgM Ab Negative (Negative) COVID-19 Eval Order SARS-CoV-2 (PCR) (Negative) 02/16/21 02/16/21 02/16/21 Range/Units 12:50 12:50 13:10 WBC (4.8-10.8) K/uL RBC (4.7-6.1) M/uL Hgb (14.0-18.0) g/dL Hct (42-52) % MCV (80-100) fL MCH (25-34) pg MCHC (32-36) g/dL RDW Std Deviation (36.4-46.3) fL RDW Coeff of Riley (11.5-14.5) % Plt Count (130-400) K/uL MPV (7.4-10.4) fL Immature Gran % (Auto) % Neut % (Auto) % Lymph % (Auto) % [place] % (Auto) % Eos % (Auto) % Baso % (Auto) % Neut # (Auto) (1.4-6.5) K/uL Lymph # (Auto) (1.2-3.4) K/uL [place] # (Auto) (0.11-0.59) K/uL Eos # (Auto) (0-0.5) K/uL Baso # (Auto) (0-0.2) K/uL Immature Gran # (Auto) (0.00-0.02) K/uL Sodium (136-145) mmol/L Potassium (3.5-5.1) mmol/L Chloride (98-107) mmol/L Carbon Dioxide (21-32) mmol/L Anion Gap (3-11) BUN (7-18) mg/dl Creatinine (0.6-1.4) mg/dl Est Cr Clr Drug Dosing ml/min Est GFR ( Amer) ml/min Est GFR (Non-Af Amer) ml/min BUN/Creatinine Ratio (10-20) Glucose (70-99) mg/dl Lactate 2.0 (0.4-2.0) mmol/L Calcium (8.5-10.1) mg/dl Phosphorus (2.5-4.9) mg/dl Magnesium (1.8-2.4) mg/dl Total Bilirubin (0.2-1) mg/dl AST (15-37) U/L ALT (12-78) U/L Alkaline Phosphatase (45-117) U/L Total Protein (6.4-8.2) gm/dl Albumin (3.4-5.0) gm/dl Globulin (2.5-4.0) gm/dl Albumin/Globulin Ratio (0.9-2) Ethyl Alcohol mg/dL (0-3) mg/dl Anaplasma Smear A. phagocytophilum DNA (Not Detected) Babesia microti IgG Ab (<1:64) titer Babesia microti IgM Ab (<1:20) titer [facility] Interpretation Lyme Disease IgG Ab (Negative) Lyme Disease IgM Ab (Negative) COVID-19 Eval Order Covid19 at [facility] SARS-CoV-2 (PCR) NEGATIVE (Negative) Imaging Data Radiologist's Impression: Abdomen/Pelvis CT 02/16/21 11:[address] WITH IV AND ORAL CONTRAST CT DOSE: HISTORY: Transabdominal pain. Ulcerative colitis flare. TECHNIQUE: Multiaxial CT images of the abdomen and pelvis were performed following the use of intravenous and oral contrast. A dose lowering technique was utilized adhering to the principles of ALARA. COMPARISON STUDY: Abdomen and pelvis CT 01/21/2018. FINDINGS: No pneumoperitoneum. No pneumatosis. The liver, gallbladder, spleen, adrenal glands, and pancreas are unremarkable. The main portal vein is patent. Normal caliber abdominal aorta. There is mild bilateral perinephric fat stranding/edema. This is slightly progressed in the interval. No hydronephrosis. There is a 1 cm hypodense lesion within the upper pole the right kidney, unchanged. This favors a cyst. Focal heterogeneous area within the upper pole the left kidney remains unchanged and may represent scarring. A few prominent retroperitoneal lymph nodes are also stable and are therefore likely benign. There is mild motion artifact. No pelvic free fluid. Moderate bladder wall thickening, unchanged. Multiple colonic diverticula. [id number] bowel wall thickening of the descending colon with associated pericolonic fat stranding. Findings favor a nonspecific colitis and could be due to an infectious or inflammatory process. The pericolonic fat stranding is most pronounced at the sigmoid colon. This is where the majority of the diverticula reside. Therefore, a superimposed acute diverticulitis could also have a similar appearance but is considered less likely. No evidence for bowel obstruction. Normal appendix. IMPRESSION: 1. [id number] bowel wall thickening of the descending colon and sigmoid colon with associated pericolonic fat stranding. Findings favor a nonspecific colitis and could be due to an infectious or inflammatory process. 2. The pericolonic fat stranding is most pronounced at the sigmoid colon. This is where the majority of the diverticula reside. Therefore, a superimposed acute diverticulitis could also have a similar appearance but is considered less likely. 3. Moderate bladder wall thickening, unchanged. Recommend correlation with urinalysis. 4. Mild bilateral perinephric edema/fat stranding has also slightly progressed. ACT 112: Negative or not required by law. Electronically signed by: Amor Harrison M.D. 02/16/2021 2:29 PM Chest CTA 02/16/21 13:16 CHEST CTA for PULMONARY ARTERIES CT DOSE: 1309.13 mGy.cm HISTORY: Atypical chest pain. TECHNIQUE: Multiaxial CT images of the chest were performed following the intravenous administration of contrast to evaluate the pulmonary arteries. Maximal intensity projection images were also obtained. A dose lowering technique was utilized adhering to the principles of ALARA. COMPARISON STUDY: None. FINDINGS: Normal caliber thoracic aorta with no evidence for dissection. Mild motion artifact results in suboptimal evaluation of the bibasilar segmental/subsegmental pulmonary arteries. However, no definite filling defects within the pulmonary arteries to suggest a pulmonary embolus. Please refer to same day abdomen and pelvis CT for further evaluation of the abdominal structures. The thyroid gland enhances normally. Normal caliber esophagus. The heart is normal in size. No pleural or pericardial effusions. A few prominent right paratracheal and right hilar lymph nodes which measure up to 9 mm in short axis diameter. No pneumothorax. The central airways are patent. A few bibasilar linear densities favor subsegmental atelectasis. Otherwise, no focal lung consolidations to suggest pneumonia. IMPRESSION: Mild motion artifact. However, no definite filling defects within the pulmonary arteries to suggest a pulmonary embolus. ACT 112: Negative or not required by law. Electronically signed by: Amor Harrison M.D. 02/16/2021 2:18 PM ECG Data Attestation: I personally reviewed and interpreted this ECG as follows: Indication: + tachycardia Rate (beats per minute): 109 Rhythm: + sinus tachycardia ECG Intervals/blocks: + Normal QRS ECG Lena: + Normal ECG ST segments: + Normal ST segments and + repolarization abnormalities (T wave abnl inferior) ECG Findings: + LVH Blood Pressure Blood Pressure Findings: Normal blood pressure Blood Pressure Disposition: did not require urgent referral MDM Narrative This patient was evaluated and appeared to be in no significant distress. IV access was obtained and laboratory work was drawn. An order for cardiac monitoring was placed and the patient is noted to be in a NS tachycardia at 128 bpm. IV hydration was initiated. Patient's records were reviewed. His electrolytes have been repleted. Patient was given additional phosphorus, potassium and calcium today. Banana bag was administered. Patient states he has not had anything to drink in several days. He was given IV Ativan without significant improvement in his heart rate. EKG confirms a sinus tachycardia. Patient was then given 5 mg of IV metoprolol with improvement. CT of the chest reveals no evidence of acute pulmonary embolus. CT of the abdomen and pelvis reveals evidence of the patient's ulcerative colitis. Seems that the patient's presentation is consistent with electrolyte depletion and alcohol withdrawal however the patient previously admitted to only several beers daily. Nonetheless the patient's case was discussed with the hospitalist service who will evaluate the patient for admission and further management. Impression & Plan Hypophosphatemia, Alcohol use, Sinus tachycardia, Episode of shaking Discharge Plan Visit Data Chief Complaint: Hand Injury/Pain Stated Complaint: SHAKING /HAND NUMBNESS ED Provider: Svetlana Matthews Discharge Problem: Hypophosphatemia, Alcohol use, Sinus tachycardia, Episode of shaking Patient Disposition: Admitted As Inpatient Discharge Instructions Interventions: ED Discharge Assessment Last Done: 02/16/21 16:38
[2021-02-16] MEDS ORDERED: MULTI-VITAMIN INFUSION 10 ML, THIAMINE HCL 100 MG, FOLIC ACID 1 MG in SODIUM CHLORIDE 0... IV ONE (16:20)
--- NOTE | 2021-02-16 16:49 | History & Physical Report ---
Date of Service February 16, 2021 Assessment & Plan (1) Episode of shaking: (2) Sinus tachycardia: This is a 60-year-old male who has significant past medical history of ulcerative colitis, hiatal hernia, chronic neck pain, HTN, HLD who presents to ED secondary to uncontrolled shaking of hands/arms x10 to 15 minutes prior to arrival. Patient was seen and examined in ER for similar symptoms yesterday. Upper ext tremors of unknown origin. Associated with tachycardia. In ED pt was initially tachycardic with HR in the 130s. He received IV lopressor which decreased blood pressure as well. ? if 2/2 to etoh use/withdrawal vs poor oral intake/dehydration, low phos. In ED blood cultures obtain. Chest CT negative for infection. CT abd/pelvis reveal colitis likely 2/2 to U.C but possible acute diverticulitis Urinalysis ordered but not yet obtained. Pt re-evaluated after initial admission evaluation Pt remains asymptomatic; however continues to be mildly tachycardic and BP SBP 94 and repeat 105. Meets SIRS criteria 2/2 to wbc 3.29, tachycardia and now intermittent low bp admit to med tele Empirically start IV zosyn for broad spectrum 2/2 to possible GI/colitis replace electrolytes continue IVF 125cc/hr repeat labs in a.m. prn ativan for tremors Cspine xray r/o neck pathology consider neuro eval if recurs (3) Alcohol dependence: pt admits to drinking 1-2 drinks/day "depends how hard the day is." Last ETOH ~ 2-3 days ago, ETOH negative in ED Tachycardia possibly in setting of withdrawal received banana bag in ED as well as IV ativan AWSS protocol with PRN IV ativan start daily folic acid and b1 (4) Hypophosphatemia: Phos 2.1, was 1.4 yesterday Received oral potassium phosphate in ED will give additional 6 mmol K-Phos Repeat in a.m. (5) Ulcerative colitis: [facility]s [facility] Recently diagnosed with flare and underwent flex sig which revealed chronic active colitis with cryptitis and crypt abscess, moderate activity Placed on steroid taper and is currently on prednisone 20 mg daily Continue mesalamine Patient without active GI symptoms, no bloody bowel movements or abdominal pain Feel CT findings likely related to ulcerative colitis, no active infection (6) HTN (hypertension): Treated with losartan as outpatient will hold, blood pressure on lower side (7) Chronic neck pain: (8) Paresthesia: Patient complains of pins and needle sensation to fingertips Follows Dr. Watesr for neck injections When shaking and tremor started today his lifted up on his neck and symptoms stopped He is requesting imaging of neck Obtain a cervical spine x-ray Check thiamine and B12 level (9) Hypoalbuminemia: alb 3.0 consult clothes shaker given mag/phos deficiencies suspect degree of malnutrition with alcohol use (10) Anemia: H&H stable at 13 and 39.4 Obtain anemia panel Possibly chronic in setting of ulcerative colitis No signs or symptoms of bleeding (11) DVT prophylaxis: SCD/teds Dispo: Med telemetry PCP: Mirza Full Code Patient was seen and examined in collaboration with Dr. 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 Primary Care Provider: Benjamin Blue MD This is a 60-year-old male who has significant past medical history of ulcerative colitis, hiatal hernia, chronic neck pain, HTN, HLD who presents to ED secondary to uncontrolled shaking of hands/arms x10 to 15 minutes prior to arrival. Patient was seen and examined in ER for similar symptoms yesterday. He was felt to be dehydrated and received IV fluid. He was also found to have hypomagnesemia and hypophosphatemia and electrolytes were repleted. He was discharged home and felt better. He states this morning he got up and started drinking his morning coffee. He was just sitting at the table when his bilateral arms and hands started tremoring uncontrollably. He also felt pins and needle sensation to finger pads. He decided to climb onto his recliner, lay down, across his arms and get under a blanket. This seemed to help with the shaking minimally. He opted to return to ED for further evaluation. Symptoms lasted approximately 10 to 15 minutes and resolved as he was arriving to ED. is at bedside who witnessed both events. 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 Yesterday prior to his event he had 1 bottle of water, coffee and half a piece of toast. This morning he only started with his coffee. During this event he denies any loss of consciousness, falling, lightheadedness, dizziness, chest pain, shortness breath, palpitations, diaphoresis, nausea, vomiting, abdominal pain, loss of bowel or bladder. He admits to this happening several years ago but does not remember exactly what happened. Prior to these 2 tremor episodes he otherwise feels he has been doing well. Over the last month he has lost approximately 20 pounds unintentional but attributes this to working outside. He denies any recent fever, chills, sweats, URI symptoms, cough, hemoptysis, melena, hematochezia or constipation. Patient does suffer from ulcerative colitis has been following with gastroenterology. On 01/24 he underwent flex sigmoidoscopy which revealed chronic active colitis with crypt abscess. Earlier in December he was experiencing bloody diarrhea and was started on a prednisone taper. He initially started at 40 mg daily for 1 week. He is currently on 20 mg daily. He also recently has been approved for Humira and is going to be starting that for ulcerative colitis flare. He denies any bloody bowel movements. He has approximately 2 bowel movements daily which are loose. He denies any change in bowel habits or abdominal pain. Earlier in December he also got tested for C. difficile and stool culture which was negative. In ED patient remained tachycardic and blood pressure fluctuating on lower side. In ED initially patient was tachycardic with heart rates in the 130s. He was ordered initially IV metoprolol due to concern for possible atrial flutter which and then dropped his blood pressure. He also was started on IV fluid. Lab work-up did reveal hypophosphatemia at 2.1 which is improved from yesterday at 1.4, stable anemia at 13.0 and 39.4, BUN 16, creatinine 1.08. Ethyl alcohol was negative. Chest CTA was negative for PE CT abdomen pelvis revealed mild to moderate bowel wall thickening of descending colon and sigmoid colon favoring a nonspecific colitis likely inflammatory or infectious. Allergies Allergy/AdvReac Type Severity Reaction Status Date / Time latex Allergy Intermediate RASH Verified 02/16/21 12:26 morphine Allergy Intermediate HIVES Verified 02/16/21 12:26 Home Medications Medication Instructions Recorded Confirmed Type dicyclomine 20 mg PO QID PRN 02/15/21 02/16/21 History losartan 50 mg PO HS 02/15/21 02/16/21 History omeprazole 20 mg PO DAILYBB 02/15/21 02/16/21 History prednisone 10 mg PO UD 02/15/21 02/16/21 History mesalamine 0.375 g PO QID 02/16/21 02/16/21 History Past Med/Surg History Medical History (Updated 02/16/21 @ 17:15 by Gia Brar PA-C) Chronic neck pain Clostridium difficile infection Daily consumption of alcohol Dehydration Diverticulitis Esophagitis (Unknown) "EGD 2010 " HLD (hyperlipidemia) HTN (hypertension) Hypomagnesemia Hypophosphatemia Ulcerative colitis Surgical History (Updated 02/16/21 @ 17:01 by Gia Brar PA-C) H/O arthroscopic knee surgery Family History Father Prostate cancer Social History (Updated 02/16/21 @ 17:02 by Gia Brar PA-C) Smoking Status: Current every day smoker Tobacco Type: Cigars Second Hand Exposure: No; Do You Dip or Chew Tobacco: No; Tobacco Cessation Education Requested by Patient: No Hx Alcohol Use: Yes Alcohol type: wine Alcohol Intake Frequency: 4 or More x per/Week Alcohol Intake Frequency Comment: daily 1-2 drinks, last drink > 48 hrs Hx Substance Use: No Preferred Language: Macedonian Communication Ability: Effective Sound System Installer Required: No Beliefs That Will Affect Care: None marital status: Current Living Situation: Spouse current occupational status: employed 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 Other Information That Helps Us Care for You: No Feels Safe at Home: Yes Safety Concerns: Feels Safe At This Time Assistive Devices: Denture - Upper, Denture - Lower and Glasses Review of Systems Review of Systems: All systems reviewed & are unremarkable except as noted in HPI & below Physical Exam Physical Exam: Constitutional: WD/WN, male, red facies, vitals as above, NAD, sitting up in bed, pleasant, conversing easily Head: Normocephalic, Atraumatic Eyes: PERRL, conjunctivae normal, anicteric sclerae ENMT: external ear and nose normal, oropharynx normal Neck: trachea midline, no thyromegaly normal visual inspection Respiratory: normal respiratory effort, lungs clear to auscultation, no wheeze, rales, rhonchi. Normal insp/exp effort, no accessory muscle use Cardiovascular: Tachycardic rate, regular rhythm, no murmur, no edema Vessels: no JVD or carotid bruit Chest: normal inspection of chest Abdomen: Distended protuberant abdomen, normal bowel sounds, soft, nontender, no hepatosplenomegaly Musculoskeletal: no cyanosis or clubbing, extremities motor strength 5/5 , very mild tremor to left hand when arms fully extended, no asterixis Skin: no rashes, warm and dry normal turgor Neurologic: PERRL, EOMI, accommodation nl, no face palsy, no dysarthria CN's II-XI intact bilaterally and moves all extremities Psychiatric: A+Ox3, euthymic affect Lymphatic: no cervical or axillary lymphadenopathy : deferred Results & Data Results & Data ([facility]) Vital Signs (Past 12 Hours) Vital Signs Temp Pulse Resp BP Pulse Ox 02/16/21 15:50 111 H 31 H 94 02/16/21 15:42 112 H 23 105/68 95 02/16/21 15:20 111 H 23 94 02/16/21 15:10 112 H 25 H 94 02/16/21 15:00 111 H 26 H 92/63 L 93 02/16/21 14:50 110 H 22 94 02/16/21 14:49 110 H 28 H 110/66 94 02/16/21 14:40 108 H 24 94 02/16/21 14:30 103 H 26 H 100/70 94 02/16/21 14:25 107 H 28 H 113/70 95 02/16/21 14:21 120 H 29 H 96 02/16/21 14:20 120 H 36 H 119/67 97 02/16/21 14:12 123 H 23 94 02/16/21 13:50 126 H 16 93 02/16/21 13:40 121 H 28 H 95 02/16/21 13:30 127 H 26 H 120/64 94 02/16/21 13:20 130 H 19 96 02/16/21 13:10 128 H 14 94 02/16/21 13:00 133 H 26 H 94 02/16/21 12:50 137 H 17 95 02/16/21 12:40 130 H 32 H 91 02/16/21 12:30 136 H 18 142/98 H 02/16/21 12:20 128 H 31 H 90 02/16/21 12:10 135 H 32 H 94 02/16/21 12:00 132 H 28 H 124/73 90 02/16/21 11:50 136 H 30 H 94 02/16/21 11:40 133 H 21 96 02/16/21 11:34 137 H 19 126/75 92 02/16/21 11:30 132 H 23 129/71 92 02/16/21 11:20 132 H 15 95 02/16/21 11:10 130 H 18 95 02/16/21 11:04 133 H 29 H 131/68 97 02/16/21 10:42 36.5 C 138 H 20 129/68 97 Diagnostic Findings Abdomen/Pelvis CT 02/16/21 11:[address] WITH IV AND ORAL CONTRAST CT DOSE: HISTORY: Transabdominal pain. Ulcerative colitis flare. TECHNIQUE: Multiaxial CT images of the abdomen and pelvis were performed following the use of intravenous and oral contrast. A dose lowering technique was utilized adhering to the principles of ALARA. COMPARISON STUDY: Abdomen and pelvis CT 01/21/2018. FINDINGS: No pneumoperitoneum. No pneumatosis. The liver, gallbladder, spleen, adrenal glands, and pancreas are unremarkable. The main portal vein is patent. Normal caliber abdominal aorta. There is mild bilateral perinephric fat stranding/edema. This is slightly progressed in the interval. No hydronephrosis. There is a 1 cm hypodense lesion within the upper pole the right kidney, unchanged. This favors a cyst. Focal heterogeneous area within the upper pole the left kidney remains unchanged and may represent scarring. A few prominent retroperitoneal lymph nodes are also stable and are therefore likely benign. There is mild motion artifact. No pelvic free fluid. Moderate bladder wall thickening, unchanged. Multiple colonic diverticula. [id number] bowel wall thickening of the descending colon with associated pericolonic fat stranding. Findings favor a nonspecific colitis and could be due to an infectious or inflammatory process. The pericolonic fat stranding is most pronounced at the sigmoid colon. This is where the majority of the diverticula reside. Therefore, a superimposed acute diverticulitis could also have a similar appearance but is considered less likely. No evidence for bowel obstruction. Normal appendix. IMPRESSION: 1. Skac-[id number] bowel wall thickening of the descending colon and sigmoid colon with associated pericolonic fat stranding. Findings favor a nonspecific colitis and could be due to an infectious or inflammatory process. 2. The pericolonic fat stranding is most pronounced at the sigmoid colon. This is where the majority of the diverticula reside. Therefore, a superimposed acute diverticulitis could also have a similar appearance but is considered less likely. 3. Moderate bladder wall thickening, unchanged. Recommend correlation with urinalysis. 4. Mild bilateral perinephric edema/fat stranding has also slightly progressed. ACT 112: Negative or not required by law. Electronically signed by: Amor Harrison M.D. 02/16/2021 2:29 PM Chest CTA 02/16/21 13:16 CHEST CTA for PULMONARY ARTERIES CT DOSE: 1309.13 mGy.cm HISTORY: Atypical chest pain. TECHNIQUE: Multiaxial CT images of the chest were performed following the intravenous administration of contrast to evaluate the pulmonary arteries. Maximal intensity projection images were also obtained. A dose lowering technique was utilized adhering to the principles of ALARA. COMPARISON STUDY: None. FINDINGS: Normal caliber thoracic aorta with no evidence for dissection. Mild motion artifact results in suboptimal evaluation of the bibasilar segmental/subsegmental pulmonary arteries. However, no definite filling defects within the pulmonary arteries to suggest a pulmonary embolus. Please refer to same day abdomen and pelvis CT for further evaluation of the abdominal structures. The thyroid gland enhances normally. Normal caliber esophagus. The heart is normal in size. No pleural or pericardial effusions. A few prominent right paratracheal and right hilar lymph nodes which measure up to 9 mm in short axis diameter. No pneumothorax. The central airways are patent. A few bibasilar linear densities favor subsegmental atelectasis. Otherwise, no focal lung consolidations to suggest pneumonia. IMPRESSION: Mild motion artifact. However, no definite filling defects within the pulmonary arteries to suggest a pulmonary embolus. ACT 112: Negative or not required by law. Electronically signed by: Amor Harrison M.D. 02/16/2021 2:18 PM Medications Administered Medication List Sodium Chloride (Nss 1000ml) 1,000 mls @ 125 mls/hr IV .Q8H WILLARD Stop: 02/16/21 19:29 Last Admin: 02/16/21 11:21 Dose: 125 mls/hr Documented by: [id number] Metoprolol Tartrate (Metoprolol Tartrate 1 Mg/Ml Vial) 5 mg IV Q5M PRN PRN Reason: Tachycardia Stop: 03/18/21 12:53 Last Admin: 02/16/21 14:48 Dose: 5 mg Documented by: [id number] Admin: 02/16/21 14:19 Dose: 5 mg Documented by: [id number] Discontinued Medications Lorazepam (Ativan) 2 mg in 4 mls @ 4 mls/min IV NOW STA Stop: 02/16/21 11:39 Last Admin: 02/16/21 11:51 Dose: 4 mls/min Documented by: [id number] Potassium Chloride (K Diogo / Wtr) 10 meq in 100 mls @ 100 mls/hr IV Q1H WILLARD Stop: 02/16/21 13:59 Last Infusion: 02/16/21 14:29 Dose: 100 mls/hr Documented by: [id number] Admin: 02/16/21 13:29 Dose: 100 mls/hr Documented by: [id number] Infusion: 02/16/21 13:23 Dose: 100 mls/hr Documented by: [id number] Admin: 02/16/21 12:23 Dose: 100 mls/hr Documented by: [id number] Calcium Gluconate () 1,000 mg in 60 mls @ 240 mls/hr IV NOW STA Stop: 02/16/21 12:09 Last Infusion: 02/16/21 12:19 Dose: 240 mls/hr Documented by: [id number] Admin: 02/16/21 12:04 Dose: 240 mls/hr Documented by: [id number] Ioversol (Optiray 320 125ml) 119 ml IV ONCE ONE Stop: 02/16/21 14:02 Last Admin: 02/16/21 14:02 Dose: 119 ml Documented by: [id number] Potassium Phosphate (Pot Phosphate Monobasic W/ Sod Tab) 2 tab PO NOW STA Stop: 02/16/21 11:55 Last Admin: 02/16/21 12:04 Dose: 2 tab Documented by: [id number] ECG Rate (beats per minute): 135 Rhythm: sinus tachycardia COVID-19 Results Results COVID-19 Adm Lab Results: RBC 3.65 M/uL (4.7-6.1) L 02/17/21 WBC 9.25 K/uL (4.8-10.8) 02/17/21 Hgb 11.4 g/dL (14.0-18.0) L 02/17/21 Hct 34.3 % (42-52) L 02/17/21 Plt Count 168 K/uL (130-400) 02/17/21 Neutrophils (%) (Auto) 84.1 % 02/17/21 Lymphocytes (%) (Auto) 12.9 % 02/17/21 Monocytes # (Auto) 0.26 K/uL (0.11-0.59) 02/17/21 Eosinophils # (Auto) 0.00 K/uL (0-0.5) 02/17/21 Immature Granulocyte % (Auto) 0.1 % 02/17/21 Neutrophils # (Auto) 7.78 K/uL (1.4-6.5) H 02/17/21 Lymphocytes # (Auto) 1.19 K/uL (1.2-3.4) L 02/17/21 Monocytes # (Auto) 0.26 K/uL (0.11-0.59) 02/17/21 Eosinophils # (Auto) 0.00 K/uL (0-0.5) 02/17/21 Basophils # (Auto) 0.01 K/uL (0-0.2) 02/17/21 Immature Granulocyte # (Auto) 0.01 K/uL (0.00-0.02) 02/17/21 Na 139 mmol/L (136-145) 02/17/21 K 4.1 mmol/L (3.5-5.1) 02/17/21 Cl 109 mmol/L (98-107) H 02/17/21 CO2 25 mmol/L (21-32) 02/17/21 Anion Gap 5.0 (3-11) 02/17/21 BUN 12 mg/dl (7-18) 02/17/21 Creatinine 0.96 mg/dl (0.6-1.4) 02/17/21 BUN/Creatinine Ratio 12.2 (10-20) 02/17/21 Glucose Level 140 mg/dl (70-99) H 02/17/21 Ca 8.0 mg/dl (8.5-10.1) L 02/17/21 Phosphorus Level 2.8 mg/dl (2.5-4.9) 02/17/21 Total Bilirubin 0.8 mg/dl (0.2-1) 02/17/21 AST/SGOT 13 U/L (15-37) L 02/17/21 ALT/SGPT 34 U/L (12-78) 02/17/21 Alkaline Phosphatase 77 U/L (45-117) 02/17/21 Total Protein 5.8 gm/dl (6.4-8.2) L 02/17/21 Albumin 2.5 gm/dl (3.4-5.0) L 02/17/21 Globulin 3.3 gm/dl (2.5-4.0) 02/17/21 Albumin/Globulin Ratio 0.8 (0.9-2) L 02/17/21 Procalcitonin 15.92 ng/ml (0-0.5) H 02/16/21 Ferritin 348.4 ng/ml (8-388) 02/17/21 COVID-19 PCR NEGATIVE (Negative) 02/16/21 Code Status & VTE Plan Code Status Full Code VTE Prophylaxis Plan VTE Prophylaxis will be ordered: Yes Supervising Physician Co-Signing Physician Notes I have seen and examined the patient and have discussed the case with the provider above. I agree with the assessment and plan as stated. The patient is a 60-year-old man with known ulcerative colitis has been on a prednisone taper with as needed mesalamine enemas. He reports being ill for the past several weeks, notably longer than other episodes he has experienced in the past. 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 He reports upper body and upper limb shaking, presents with tachycardia, and also reported numbness in both hands including the distal fingers, all 10 yesterday prior to electrolyte replacement. That numbness has since resolved. Physical exam reveals an alert and oriented man who appears to have been through a lot. He is not necessarily fatigued but appears to be pushing through. Tachycardia is improved and S1-S2 without murmurs are heard. He has no pedal edema and clinically appears dehydra anuradha on exam. Abdominal exam is benign and nontender and lungs are clear to auscultation. This patient is adamant about not being in the hospital and fighting at every step of the way. is at bedside. Agree with plan above. Apparent etiologies here include but are not limited to evolving sepsis from a bowel etiology especially in the setting of immune suppression with prednisone, alcohol withdrawal, prednisone side effect. Agree with broad-spectrum antibiotics, CIWA protocol and GI consult for further guidance on status of his UC at this point. He is tolerating p.o. Blood cultures are pending. Continue to monitor clinically DO Alan
--- NOTE | 2021-02-16 17:23 | Electrocardiogram Report ---
Test Reason : Blood Pressure : / mmHG Vent. Rate : 135 BPM Atrial Rate : 135 BPM P-R Int : 128 ms QRS Dur : 084 ms QT Int : 288 ms P-R-T Axes : 045 -20 044 degrees QTc Int : 432 ms Sinus tachycardia Minimal voltage criteria for LVH, may be normal variant Borderline ECG When compared with ECG of 15-FEB-2021 14:44, No significant change was found Confirmed by Sherif Curry ([id number]) on 02/16/2021 5:23:18 PM Referred By: REFERRED SELF Confirmed By:Clifton Curry
--- NOTE | 2021-02-16 17:32 | XRay Report ---
XR cervical spine 2 or 3V CLINICAL HISTORY: paresthesias in hand COMPARISON STUDY: Cervical spine 10/21/2013. FINDINGS: The cervical spine is visualized from C1 through the superior endplate of T1. There is stra ightening cervical spine. Alignment is intact. No fracture or subluxation. Prevertebral soft tissues and the C1-C2 interval are maintained. Moderate to severe facet degenerative changes throughout the m ajority of the cervical spine. There is moderate disc space narrowing and endplate osteophytes at C5- C6. There is mild disc space narrowing at C6-C7 with small endplate osteophytes. This is also similar to the prior study. IMPRESSION: 1. No fractures within the cervical spine. 2. Straightening of the cervical spine with degenerative changes as described above. This is similar to the prior study. ACT 112: Negative or not required by law. Electronically signed by: Amor Harrison M.D. 02/16/2021 5:31 PM
[2021-02-16] MEDS ORDERED: ALUMINUM/MAGNESIUM SUSP 30 ML UDC PO PRN (17:41)
[2021-02-16] MEDS ORDERED: MAGNESIUM HYDROXIDE SUSP 30 ML UDC PO PRN (17:41)
[2021-02-16] MEDS ORDERED: ATIVAN IV ALCOHOL WITHDRAWL IV PRN (17:41)
[2021-02-16] MEDS ORDERED: ONDANSETRON INJ 2 MG/ML 2 ML VIAL IV PRN (17:41)
[2021-02-16] MEDS ORDERED: LORazepam 2 MG/4 ML VIAL IV PRN (17:41)
[2021-02-16] MEDS ORDERED: LORazepam 3 MG/6 ML VIAL IV PRN (17:41)
[2021-02-16] MEDS ORDERED: PIPERACILL/TAZOBAC CONSULT ACTIVE PRN (17:41)
[2021-02-16] MEDS ORDERED: DICYCLOMINE HCL 20 MG TAB PO PRN (17:41)
[2021-02-16] MEDS ORDERED: POLYETHYLENE (MIRALAX) 17 GM PACK PO PRN (17:41)
[2021-02-16] MEDS ORDERED: ACETAMINOPHEN 325 MG TAB PO PRN (17:41)
[2021-02-16] MEDS ORDERED: LORazepam 1 MG/2 ML VIAL IV PRN (17:41)
[2021-02-16] MEDS ORDERED: POTASSIUM PHOS 3 MMOL/1 ML INFUSION IV ONE (18:00)
[2021-02-16] MEDS ORDERED: PIPERACILLIN/TAZOBACTAM 4.5 GM in DEXTROSE 5% 100 ML IV ONE (18:15)
[2021-02-16] MEDS ORDERED: POTASSIUM PHOSPHATE 6 MMOL in 0.9 % SODIUM CHLORIDE 100 ML IV ONE (18:15)
[2021-02-16] MEDS ORDERED: PNEUMOCOCCAL POLYSACCHARIDES 25 MCG/0.5 ML VIAL/SYR IM ONE (18:17)
[2021-02-16 18:55] LABS: Appearance Urine Clear (Clear); Bilirubin Urine Negative (Negative); Blood Urine Negative (Negative); Color Urine Dark Yellow; Glucose Urine UA Negative (Negative); Ketones Urine Negative (Negative); Leukocyte Esterase Urine Negative (Negative); Nitrite Urine Negative (Negative); Protein Urine Negative (Negative); Specific Gravity Urine > 1.045 (1.000-1.030); Urobilinogen Urine Positive (Negative)
[2021-02-16] MEDS: THIAMINE HCL 100 MG TAB PO SCH (20:38)
[2021-02-16] MEDS: predniSONE 20 MG TAB PO SCH (20:38)
[2021-02-16] MEDS: FOLIC ACID 1 MG TAB PO SCH (20:56)
[2021-02-17] MEDS: PIPERACILLIN/TAZOBACTAM 3.375 GM in DEXTROSE 5% 100 ML IV SCH ×3 (00:08→16:42)
[2021-02-17] MEDS ORDERED: Nursing to Pharmacy Communication SCH (04:15)
[2021-02-17] MEDS ORDERED: LACTATED RINGER'S 1,000 ML IV ONE (05:41)
[2021-02-17] MEDS: PANTOprazole 40 MG TAB PO SCH (06:07)
[2021-02-17 08:05] LABS: Basophils # (auto) 0.01 K/uL (0-0.2); Basophils % (auto) 0.1 %; Hematocrit (blood only) 34.3 % (42-52); Hemoglobin 11.4 g/dL (14.0-18.0); Immature Granulocytes # (auto) 0.01 K/uL (0.00-0.02); Immature Granulocytes % (auto) 0.1 %; Lymphocytes # (auto) 1.19 K/uL (1.2-3.4); Lymphocytes % (auto) 12.9 %; Mean Corpuscular Hemoglobin 31.2 pg (25-34); Mean Corpuscular Hgb Conc 33.2 g/dL (32-36); Mean Platelet Volume 9.2 fL (7.4-10.4); Monocytes # (auto) 0.26 K/uL (0.11-0.59); Monocytes % (auto) 2.8 %; Neutrophils # (auto) 7.78 K/uL (1.4-6.5); Neutrophils % (auto) 84.1 %; Platelet Count 168 K/uL (130-400); RDW Coefficient of Variation 14.5 % (11.5-14.5); RDW Standard Deviation 49.9 fL (36.4-46.3); Red Blood Count 3.65 M/uL (4.7-6.1); White Blood Count 9.25 K/uL (4.8-10.8)
[2021-02-17] MEDS: FOLIC ACID 1 MG TAB PO SCH (08:42)
[2021-02-17] MEDS: THIAMINE HCL 100 MG TAB PO SCH (08:42)
[2021-02-17] MEDS: predniSONE 20 MG TAB PO SCH (08:42)
[2021-02-17 08:46] LABS: Albumin Globulin Ratio 0.8 (0.9-2); Albumin Level 2.5 gm/dl (3.4-5.0); BUN Creatinine Ratio 12.2 (10-20); Bilirubin,Total 0.8 mg/dl (0.2-1); Creatinine Clr Calc Pharmacy 92.1 ml/min; Est GFR (African American) 98.5 ml/min; Ferritin 348.4 ng/ml (8-388); Globulin 3.3 gm/dl (2.5-4.0); Magnesium 2.3 mg/dl (1.8-2.4); Phosphorus 2.8 mg/dl (2.5-4.9); Potassium 4.1 mmol/L (3.5-5.1); Total Protein 5.8 gm/dl (6.4-8.2)
[2021-02-17 08:53] LABS: Folate (Folic Acid) > 20.00 ng/ml (>5.38); Vitamin B12 420 pg/ml (193-986)
--- NOTE | 2021-02-17 10:16 | Gastrointestinal Consultation ---
Date of Consultation February 17, 2021 Assessment & Plan (1) Ulcerative colitis: 60 year old male admitted shakiness, GI asked to evaluate for UC, due to transition to humira presently on Prednisone 20 mg daily Would continue with steroid taper Would recommend Humira start as an OP continue with vaccine series as ordered Can continue PO mesalamine Will call his [facility] care team Thank you for allowing us to participate in the care of this patient. Please call with any acute changes, questions or concerns. Please see addendum below with additional recommendation from my supervising physician. Supervising Physician Co-Signing Physician Notes Attg add: I interviewed and examined pt, reviewed chart and labs. Pt admit with tremor, ? dehydration, noted to have increased procalcitonin. He has no complaints at present and feels well. Had abd CT which shows colitis, abd exam non-tender. No evidence of worsening IBD -- cont prednisone as previously instructed. History of Present Illness Reason for Consultation: UC Requesting Physician: Alan Attending Physician: Yael Phillips, DO History of Present Illness 60 year old male admitted ulcerative colitis, hiatal hernia, chronic neck pain, HTN, HLD who presents to ED secondary to uncontrolled shaking - GI asked to evaluate for UC. Pt notes that he is waiting start humira as an OP. Is getting vaccines started for hep b and shingles before starting. Suggests since he started PO predniosne he has been feeling better. No abd pain. no nausea, vomiting. Tolerating PO. Denies diarrhea. Denies black or bloody stools. Allergies Allergy/AdvReac Type Severity Reaction Status Date / Time latex Allergy Intermediate RASH Verified 02/16/21 12:26 morphine Allergy Intermediate HIVES Verified 02/16/21 12:26 Home Medications Medication Instructions Recorded Confirmed Type dicyclomine 20 mg PO QID PRN 02/15/21 02/16/21 History losartan 50 mg PO HS 02/15/21 02/16/21 History omeprazole 20 mg PO DAILYBB 02/15/21 02/16/21 History prednisone 10 mg PO UD 02/15/21 02/16/21 History mesalamine 0.375 g PO QID 02/16/21 02/16/21 History Patient History Medical History (Updated 02/16/21 @ 17:15 by Gia Brar PA-C) Chronic neck pain Clostridium difficile infection Daily consumption of alcohol Dehydration Diverticulitis Esophagitis (Unknown) "EGD 2010 " HLD (hyperlipidemia) HTN (hypertension) Hypomagnesemia Hypophosphatemia Ulcerative colitis Surgical History (Updated 02/16/21 @ 17:01 by Gia Brar PA-C) H/O arthroscopic knee surgery Family History Father Prostate cancer Social History (Updated 02/16/21 @ 17:02 by Gia Brar PA-C) Smoking Status: Current every day smoker Tobacco Type: Cigars Second Hand Exposure: No; Do You Dip or Chew Tobacco: No; Tobacco Cessation Education Requested by Patient: No Hx Alcohol Use: Yes Alcohol type: wine Alcohol Intake Frequency: 4 or More x per/Week Alcohol Intake Frequency Comment: daily 1-2 drinks, last drink > 48 hrs Hx Substance Use: No Preferred Language: Nigerian Communication Ability: Effective 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: No Beliefs That Will Affect Care: None marital status: Current Living Situation: Spouse current occupational status: employed 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 Other Information That Helps Us Care for You: No Feels Safe at Home: Yes Safety Concerns: Feels Safe At This Time Assistive Devices: Denture - Upper, Denture - Lower and Glasses Review of Systems Review of Systems: All systems reviewed & are unremarkable except as noted in HPI & below Physical Exam Constitutional: WD/WN, vitals as above well nourished; no acute distress Neck: trachea midline, no thyromegaly Respiratory: normal respiratory effort, lungs clear to auscultation Cardiovascular: RRR, no murmur, no edema Gastrointestinal (Abdomen): normal bowel sounds, soft, nontender, no hepatosplenomegaly Results & Data ([facility]) Vital Signs (Past 12 Hours) Vital Signs Temp Pulse Pulse Resp BP Pulse Ox 02/17/21 07:52 75 02/17/21 06:56 36.5 C 80 18 113/69 97 02/17/21 03:00 36.7 C 75 18 97/62 L 97 02/17/21 00:29 87 02/16/21 22:52 36.8 C 90 18 94/60 L 96 Laboratory Results 02/17/21 02/17/21 02/17/21 Range/Units 07:11 07:11 07:11 WBC (4.8-10.8) K/uL RBC (4.7-6.1) M/uL Hgb (14.0-18.0) g/dL Hct (42-52) % MCV (80-100) fL MCH (25-34) pg MCHC (32-36) g/dL RDW Std Deviation (36.4-46.3) fL RDW Coeff of Riley (11.5-14.5) % Plt Count (130-400) K/uL MPV (7.4-10.4) fL Immature Gran % (Auto) % Neut % (Auto) % Lymph % (Auto) % Ashe % (Auto) % Eos % (Auto) % Baso % (Auto) % Neut # (Auto) (1.4-6.5) K/uL Lymph # (Auto) (1.2-3.4) K/uL Ashe # (Auto) (0.11-0.59) K/uL Eos # (Auto) (0-0.5) K/uL Baso # (Auto) (0-0.2) K/uL Immature Gran # (Auto) (0.00-0.02) K/uL Sodium 139 (136-145) mmol/L Potassium 4.1 D (3.5-5.1) mmol/L Chloride 109 H (98-107) mmol/L Carbon Dioxide 25 (21-32) mmol/L Anion Gap 5.0 (3-11) BUN 12 (7-18) mg/dl Creatinine 0.96 (0.6-1.4) mg/dl Est Cr Clr Drug Dosing 92.1 ml/min Est GFR ( Amer) 98.5 ml/min Est GFR (Non-Af Amer) 85.0 ml/min BUN/Creatinine Ratio 12.2 (10-20) Glucose 140 H (70-99) mg/dl Lactate (0.4-2.0) mmol/L Calcium 8.0 L (8.5-10.1) mg/dl Phosphorus 2.8 (2.5-4.9) mg/dl Magnesium 2.3 (1.8-2.4) mg/dl Iron 23 L (35-175) mcg/dl Transferrin 165 L (200-360) mg/dl Ferritin 348.4 (8-388) ng/ml Total Bilirubin 0.8 (0.2-1) mg/dl AST 13 L (15-37) U/L ALT 34 (12-78) U/L Alkaline Phosphatase 77 (45-117) U/L Total Protein 5.8 L (6.4-8.2) gm/dl Albumin 2.5 L (3.4-5.0) gm/dl Globulin 3.3 (2.5-4.0) gm/dl Albumin/Globulin Ratio 0.8 L (0.9-2) Whole Bld Vitamin B1 Pending Vitamin B12 420 (193-986) pg/ml Folate > 20.00 (>5.38) ng/ml Procalcitonin (0-0.5) ng/ml Urine Color Urine Appearance (Clear) Urine pH (4.5-7.5) Ur Specific Boaz (1.000-1.030) Urine Protein (Negative) Urine Glucose (UA) (Negative) Urine Ketones (Negative) Urine Blood (Negative) Urine Nitrite (Negative) Urine Bilirubin (Negative) Urine Urobilinogen (Negative) Ur Leukocyte Esterase (Negative) Ethyl Alcohol mg/dL (0-3) mg/dl Anaplasma Smear A. phagocytophilum DNA Babesia microti IgG Ab Babesia microti IgM Ab Babesia Interpretation Lyme Disease IgG Ab (Negative) Lyme Disease IgM Ab (Negative) COVID-19 Eval Order SARS-CoV-2 (PCR) (Negative) 02/17/21 02/16/21 02/16/21 Range/Units 07:11 Unknown 17:53 WBC 9.25 (4.8-10.8) K/uL RBC 3.65 L (4.7-6.1) M/uL Hgb 11.4 L (14.0-18.0) g/dL Hct 34.3 L (42-52) % MCV 94.0 (80-100) fL MCH 31.2 (25-34) pg MCHC 33.2 (32-36) g/dL RDW Std Deviation 49.9 H (36.4-46.3) fL RDW Coeff of Riley 14.5 (11.5-14.5) % Plt Count 168 (130-400) K/uL MPV 9.2 (7.4-10.4) fL Immature Gran % (Auto) 0.1 % Neut % (Auto) 84.1 % Lymph % (Auto) 12.9 % Ashe % (Auto) 2.8 % Eos % (Auto) 0.0 % Baso % (Auto) 0.1 % Neut # (Auto) 7.78 H (1.4-6.5) K/uL Lymph # (Auto) 1.19 L (1.2-3.4) K/uL Ashe # (Auto) 0.26 (0.11-0.59) K/uL Eos # (Auto) 0.00 (0-0.5) K/uL Baso # (Auto) 0.01 (0-0.2) K/uL Immature Gran # (Auto) 0.01 (0.00-0.02) K/uL Sodium (136-145) mmol/L Potassium (3.5-5.1) mmol/L Chloride (98-107) mmol/L Carbon Dioxide (21-32) mmol/L Anion Gap (3-11) BUN (7-18) mg/dl Creatinine (0.6-1.4) mg/dl Est Cr Clr Drug Dosing ml/min Est GFR ( Amer) ml/min Est GFR (Non-Af Amer) ml/min BUN/Creatinine Ratio (10-20) Glucose (70-99) mg/dl Lactate (0.4-2.0) mmol/L Calcium (8.5-10.1) mg/dl Phosphorus (2.5-4.9) mg/dl Magnesium (1.8-2.4) mg/dl Iron (35-175) mcg/dl Transferrin (200-360) mg/dl Ferritin (8-388) ng/ml Total Bilirubin (0.2-1) mg/dl AST (15-37) U/L ALT (12-78) U/L Alkaline Phosphatase (45-117) U/L Total Protein (6.4-8.2) gm/dl Albumin (3.4-5.0) gm/dl Globulin (2.5-4.0) gm/dl Albumin/Globulin Ratio (0.9-2) Whole Bld Vitamin B1 Vitamin B12 (193-986) pg/ml Folate (>5.38) ng/ml Procalcitonin 15.92 H (0-0.5) ng/ml Urine Color Dark Yellow Urine Appearance Clear (Clear) Urine pH 6.0 (4.5-7.5) Ur Specific Boaz > 1.045 H (1.000-1.030) Urine Protein Negative (Negative) Urine Glucose (UA) Negative (Negative) Urine Ketones Negative (Negative) Urine Blood Negative (Negative) Urine Nitrite Negative (Negative) Urine Bilirubin Negative (Negative) Urine Urobilinogen Positive H (Negative) Ur Leukocyte Esterase Negative (Negative) Ethyl Alcohol mg/dL (0-3) mg/dl Anaplasma Smear A. phagocytophilum DNA Babesia microti IgG Ab Babesia microti IgM Ab Babesia Interpretation Lyme Disease IgG Ab (Negative) Lyme Disease IgM Ab (Negative) COVID-19 Eval Order SARS-CoV-2 (PCR) (Negative) 02/16/21 02/16/21 02/16/21 Range/Units 13:10 12:50 12:50 WBC (4.8-10.8) K/uL RBC (4.7-6.1) M/uL Hgb (14.0-18.0) g/dL Hct (42-52) % MCV (80-100) fL MCH (25-34) pg MCHC (32-36) g/dL RDW Std Deviation (36.4-46.3) fL RDW Coeff of Riley (11.5-14.5) % Plt Count (130-400) K/uL MPV (7.4-10.4) fL Immature Gran % (Auto) % Neut % (Auto) % Lymph % (Auto) % Ashe % (Auto) % Eos % (Auto) % Baso % (Auto) % Neut # (Auto) (1.4-6.5) K/uL Lymph # (Auto) (1.2-3.4) K/uL Ashe # (Auto) (0.11-0.59) K/uL Eos # (Auto) (0-0.5) K/uL Baso # (Auto) (0-0.2) K/uL Immature Gran # (Auto) (0.00-0.02) K/uL Sodium (136-145) mmol/L Potassium (3.5-5.1) mmol/L Chloride (98-107) mmol/L Carbon Dioxide (21-32) mmol/L Anion Gap (3-11) BUN (7-18) mg/dl Creatinine (0.6-1.4) mg/dl Est Cr Clr Drug Dosing ml/min Est GFR ( Amer) ml/min Est GFR (Non-Af Amer) ml/min BUN/Creatinine Ratio (10-20) Glucose (70-99) mg/dl Lactate 2.0 (0.4-2.0) mmol/L Calcium (8.5-10.1) mg/dl Phosphorus (2.5-4.9) mg/dl Magnesium (1.8-2.4) mg/dl Iron (35-175) mcg/dl Transferrin (200-360) mg/dl Ferritin (8-388) ng/ml Total Bilirubin (0.2-1) mg/dl AST (15-37) U/L ALT (12-78) U/L Alkaline Phosphatase (45-117) U/L Total Protein (6.4-8.2) gm/dl Albumin (3.4-5.0) gm/dl Globulin (2.5-4.0) gm/dl Albumin/Globulin Ratio (0.9-2) Whole Bld Vitamin B1 Vitamin B12 (193-986) pg/ml Folate (>5.38) ng/ml Procalcitonin (0-0.5) ng/ml Urine Color Urine Appearance (Clear) Urine pH (4.5-7.5) Ur Specific Boaz (1.000-1.030) Urine Protein (Negative) Urine Glucose (UA) (Negative) Urine Ketones (Negative) Urine Blood (Negative) Urine Nitrite (Negative) Urine Bilirubin (Negative) Urine Urobilinogen (Negative) Ur Leukocyte Esterase (Negative) Ethyl Alcohol mg/dL (0-3) mg/dl Anaplasma Smear A. phagocytophilum DNA Babesia microti IgG Ab Babesia microti IgM Ab Babesia Interpretation Lyme Disease IgG Ab (Negative) Lyme Disease IgM Ab (Negative) COVID-19 Eval Order Covid19 at [facility] SARS-CoV-2 (PCR) NEGATIVE (Negative) 02/16/21 02/16/21 02/16/21 Range/Units 12:14 11:03 11:03 WBC (4.8-10.8) K/uL RBC (4.7-6.1) M/uL Hgb (14.0-18.0) g/dL Hct (42-52) % MCV (80-100) fL MCH (25-34) pg MCHC (32-36) g/dL RDW Std Deviation (36.4-46.3) fL RDW Coeff of Riley (11.5-14.5) % Plt Count (130-400) K/uL MPV (7.4-10.4) fL Immature Gran % (Auto) % Neut % (Auto) % Lymph % (Auto) % Ashe % (Auto) % Eos % (Auto) % Baso % (Auto) % Neut # (Auto) (1.4-6.5) K/uL Lymph # (Auto) (1.2-3.4) K/uL Ashe # (Auto) (0.11-0.59) K/uL Eos # (Auto) (0-0.5) K/uL Baso # (Auto) (0-0.2) K/uL Immature Gran # (Auto) (0.00-0.02) K/uL Sodium (136-145) mmol/L Potassium (3.5-5.1) mmol/L Chloride (98-107) mmol/L Carbon Dioxide (21-32) mmol/L Anion Gap (3-11) BUN (7-18) mg/dl Creatinine (0.6-1.4) mg/dl Est Cr Clr Drug Dosing ml/min Est GFR ( Amer) ml/min Est GFR (Non-Af Amer) ml/min BUN/Creatinine Ratio (10-20) Glucose (70-99) mg/dl Lactate (0.4-2.0) mmol/L Calcium (8.5-10.1) mg/dl Phosphorus (2.5-4.9) mg/dl Magnesium (1.8-2.4) mg/dl Iron (35-175) mcg/dl Transferrin (200-360) mg/dl Ferritin (8-388) ng/ml Total Bilirubin (0.2-1) mg/dl AST (15-37) U/L ALT (12-78) U/L Alkaline Phosphatase (45-117) U/L Total Protein (6.4-8.2) gm/dl Albumin (3.4-5.0) gm/dl Globulin (2.5-4.0) gm/dl Albumin/Globulin Ratio (0.9-2) Whole Bld Vitamin B1 Vitamin B12 (193-986) pg/ml Folate (>5.38) ng/ml Procalcitonin (0-0.5) ng/ml Urine Color Urine Appearance (Clear) Urine pH (4.5-7.5) Ur Specific Boaz (1.000-1.030) Urine Protein (Negative) Urine Glucose (UA) (Negative) Urine Ketones (Negative) Urine Blood (Negative) Urine Nitrite (Negative) Urine Bilirubin (Negative) Urine Urobilinogen (Negative) Ur Leukocyte Esterase (Negative) Ethyl Alcohol mg/dL < 3.0 (0-3) mg/dl Anaplasma Smear A. phagocytophilum DNA Babesia microti IgG Ab Pending Babesia microti IgM Ab Pending Babesia Interpretation Pending Lyme Disease IgG Ab Negative (Negative) Lyme Disease IgM Ab Negative (Negative) COVID-19 Eval Order SARS-CoV-2 (PCR) (Negative) 02/16/21 02/16/21 02/16/21 Range/Units 11:03 11:03 11:03 WBC 3.29 L D (4.8-10.8) K/uL RBC 4.07 L (4.7-6.1) M/uL Hgb 13.0 L (14.0-18.0) g/dL Hct 39.4 L (42-52) % MCV 96.8 (80-100) fL MCH 31.9 (25-34) pg MCHC 33.0 (32-36) g/dL RDW Std Deviation 52.1 H (36.4-46.3) fL RDW Coeff of Riley 14.6 H (11.5-14.5) % Plt Count 189 (130-400) K/uL MPV 8.8 (7.4-10.4) fL Immature Gran % (Auto) 0.6 % Neut % (Auto) 87.6 % Lymph % (Auto) 10.9 % Ashe % (Auto) 0.3 % Eos % (Auto) 0.6 % Baso % (Auto) 0.0 % Neut # (Auto) 2.88 (1.4-6.5) K/uL Lymph # (Auto) 0.36 L (1.2-3.4) K/uL Ashe # (Auto) 0.01 L (0.11-0.59) K/uL Eos # (Auto) 0.02 (0-0.5) K/uL Baso # (Auto) 0.00 (0-0.2) K/uL Immature Gran # (Auto) 0.02 (0.00-0.02) K/uL Sodium 141 (136-145) mmol/L Potassium 3.5 (3.5-5.1) mmol/L Chloride 108 H (98-107) mmol/L Carbon Dioxide 29 (21-32) mmol/L Anion Gap 4.0 (3-11) BUN 16 (7-18) mg/dl Creatinine 1.08 (0.6-1.4) mg/dl Est Cr Clr Drug Dosing 81.7 ml/min Est GFR ( Amer) 85.4 ml/min Est GFR (Non-Af Amer) 73.7 ml/min BUN/Creatinine Ratio 14.8 (10-20) Glucose 116 H (70-99) mg/dl Lactate (0.4-2.0) mmol/L Calcium 8.2 L (8.5-10.1) mg/dl Phosphorus 2.1 L (2.5-4.9) mg/dl Magnesium 2.1 (1.8-2.4) mg/dl Iron (35-175) mcg/dl Transferrin (200-360) mg/dl Ferritin (8-388) ng/ml Total Bilirubin 1.1 H (0.2-1) mg/dl AST 17 (15-37) U/L ALT 40 (12-78) U/L Alkaline Phosphatase 102 (45-117) U/L Total Protein 6.6 (6.4-8.2) gm/dl Albumin 3.0 L (3.4-5.0) gm/dl Globulin 3.6 (2.5-4.0) gm/dl Albumin/Globulin Ratio 0.8 L (0.9-2) Whole Bld Vitamin B1 Vitamin B12 (193-986) pg/ml Folate (>5.38) ng/ml Procalcitonin (0-0.5) ng/ml Urine Color Urine Appearance (Clear) Urine pH (4.5-7.5) Ur Specific Boaz (1.000-1.030) Urine Protein (Negative) Urine Glucose (UA) (Negative) Urine Ketones (Negative) Urine Blood (Negative) Urine Nitrite (Negative) Urine Bilirubin (Negative) Urine Urobilinogen (Negative) Ur Leukocyte Esterase (Negative) Ethyl Alcohol mg/dL (0-3) mg/dl Anaplasma Smear See Comment A. phagocytophilum DNA Pending Babesia microti IgG Ab Babesia microti IgM Ab Babesia Interpretation Lyme Disease IgG Ab (Negative) Lyme Disease IgM Ab (Negative) COVID-19 Eval Order SARS-CoV-2 (PCR) (Negative)
--- NOTE | 2021-02-17 13:25 | Electrocardiogram Report ---
Test Reason : Blood Pressure : / mmHG Vent. Rate : 109 BPM Atrial Rate : 109 BPM P-R Int : 132 ms QRS Dur : 086 ms QT Int : 310 ms P-R-T Axes : 053 -19 018 degrees QTc Int : 417 ms Sinus tachycardia Minimal voltage criteria for LVH, may be normal variant Borderline ECG When compared with ECG of 16-FEB-2021 11:05, T wave inversion now evident in Inferior leads Confirmed by Raymond Chu ([id number]) on 02/17/2021 1:25:06 PM Referred By: REFERRED SELF Confirmed By:Raymond Chu
--- NOTE | 2021-02-17 19:33 | Hospitalist Progress Note ---
Date of Service February 17, 2021 Assessment & Plan (1) Sepsis: Yesterday, it is more likely the patient had evolving sepsis. He is now resuscitated. Suspect GI source. Discussed with GI team who is okay with continuing low-dose prednisone at this time in addition to antibiotics. Consulted ID, continue Zosyn pending speciation and sensitivity. Repeat blood cultures ordered for a.m. Patient is improved clinically overall. (2) Bacteremia: Continue Zosyn pending speciation, (3) Ulcerative colitis: Recently placed on a steroid taper and is currently on prednisone 20 mg daily. [facility] consulted and is okay with continuing this in the setting of infection for now. Continue oral mesalamine, which notably has not been given as this is nonformulary. is aware and will bring this medication tomorrow. Nursing to relabel this and administer to patient RE. (4) Sinus tachycardia: Sinus tachycardia was likely an evolving sepsis on arrival and is now resolved. (5) Alcohol dependence: Questionable alcohol dependence. Clinical picture was suspicious for this so he did receive a rude banana bag as well as IV Ativan in the ER yesterday. He did not score enough to receive Ativan overnight and appears to be fine today without any evidence of withdrawal. He continues on daily folic acid and thiamine supplementation. (6) HTN (hypertension): Continue holding losartan in the setting of relative hypotension (7) Chronic neck pain: Continue outpatient management for known chronic disease. (8) DVT prophylaxis: Lovenox Full Dispo-cont to monitor for improvement in the hospital. Patient wants to leave re! Explained that we will need cultures to be speciated with sensitivities as well as definitive GI and ID recommendations prior to discharge. He and his verbalized understanding with intent to comply. Yael Phillips DO [facility] and Anticipated Discharge Date Admission Date: February 16, 2021 Subjective 60-year-old man presented with tachycardia and questionable rigors yesterday. He is now growing bacteria in his blood. It appears he had an evolving sepsis yesterday but is now resuscitated and feeling better. He reports no further rigors or shaking today. He is afebrile and tolerating p.o. His heart rate has improved to normal. Mesalamine p.o. has not been given as this is not on formulary, is aware. I discussed the care plan with both the patient and the by phone and addressed all questions. Patient denies any abdominal pain at this time. Review of Systems Review of Systems: All systems reviewed & are unremarkable except as noted in Subjective Physical Exam Physical Exam: CONSTITUTIONAL: WNWD, vitals as above, generally well- appearing EYES: normal conjunctivae, no scleral icterus ENT: external ear and nose normal, MMM RESPIRATORY: clear to auscultation bilaterally, no crackles, rales or wheezes, normal respiratory effort CARDIOVASCULAR: regular rate and rhythm, S1 and 2 heard without murmurs, gallops or rubs, no JVD, no peripheral edema, no carotid bruits GASTROINTESTINAL: soft, nontender, nondistended, no guarding. MUSCULOSKELETAL: strength 5/5 throughout, head is normocephalic and atraumatic SKIN: warm and dry NEUROLOGIC: CN 2-12 grossly intact, no sensory deficit, normal cognition, normal speech, no tremor. No gross focal deficits. PSYCHIATRIC: alert cooperative and oriented to person, place and time. Results & Data Results & Data ([facility]) Vital Signs (Past 12 Hours) Vital Signs Temp Pulse Pulse Resp BP Pulse Ox 02/17/21 19:25 36.6 C 83 20 115/71 96 02/17/21 15:32 82 02/17/21 15:17 36.4 C L 85 20 127/74 96 02/17/21 11:04 36.6 C 89 20 116/70 97 02/17/21 07:52 75 Laboratory Results Short CBC 02/17/21 Range/Units 07:11 WBC 9.25 (4.8-10.8) K/uL Hgb 11.4 L (14.0-18.0) g/dL Hct 34.3 L (42-52) % Plt Count 168 (130-400) K/uL BMP 02/17/21 07:11 Sodium 139 Potassium 4.1 D Chloride 109 H Carbon Dioxide 25 BUN 12 Creatinine 0.96 Glucose 140 H Calcium 8.0 L Liver Function 02/17/21 Range/Units 07:11 Total Bilirubin 0.8 (0.2-1) mg/dl AST 13 L (15-37) U/L ALT 34 (12-78) U/L Alkaline Phosphatase 77 (45-117) U/L Albumin 2.5 L (3.4-5.0) gm/dl Medications Administered Current Inpatient Medications Acetaminophen (Acetaminophen 325 Mg Tab) 650 mg PO Q4H PRN PRN Reason: Pain or Fever Stop: 03/18/21 17:40 Al Hydrox/Mg Hydrox/Simethicone (Aluminum/Magnesium Susp 30 Ml Udc) 15 ml PO Q4H PRN PRN Reason: Dyspepsia Stop: 03/18/21 17:40 Dicyclomine HCl (Dicyclomine Hcl 20 Mg Tab) 20 mg PO QID PRN PRN Reason: Abdominal Pain Stop: 03/18/21 17:40 Folic Acid (Folic Acid 1 Mg Tab) 1 mg PO QAM WILLARD Stop: 03/18/21 18:29 Last Admin: 02/17/21 08:42 Dose: 1 mg Documented by: Lorazepam (Ativan) 1 mg in 2 mls @ 2 mls/min IV UD PRN; Protocol PRN Reason: EtOH Withdrawl AWSS Score 6,7 Stop: 03/18/21 17:40 Lorazepam (Ativan) 2 mg in 4 mls @ 4 mls/min IV UD PRN; Protocol PRN Reason: EtOH Withdrawl AWSS Score 8,9 Stop: 03/18/21 17:40 Lorazepam (Ativan) 3 mg in 6 mls @ 4 mls/min IV ONCE PRN; Protocol PRN Reason: EtOH Withdrawl AWSS Score >=10 Stop: 03/18/21 17:40 Piperacillin Sod/Tazobactam (Sod 3.375 gm/ Dextrose) 115 mls @ 28.75 mls/hr IV Q8H WILLARD; Protocol Stop: 02/27/21 00:00 Last Admin: 02/17/21 16:42 Dose: 28.8 mls/hr Documented by: Magnesium Hydroxide (Magnesium Hydroxide Susp 30 Ml Udc) 30 ml PO Q12H PRN PRN Reason: Constipation Stop: 03/18/21 17:40 Miscellaneous (Mesalamine 0.375 Gram Capsule,Extended Release 24hr - Order Awaiting Action) 1 ea N/A QS WILLARD Stop: 03/19/21 19:59 Miscellaneous Information (Piperacill/Tazobac Consult Active) 1 ea N/A UD PRN PRN Reason: Consult Stop: 03/18/21 17:40 Ondansetron HCl (Ondansetron Inj 2 Mg/Ml 2 Ml Vial) 4 mg IV Q6H PRN PRN Reason: Nausea Stop: 03/18/21 17:40 Pantoprazole Sodium ([facility] 40 Mg Tab) [facility] Protocol Stop: 03/19/21 06:29 Last Admin: 02/17/21 06:07 Dose: 40 mg Documented by: Polyethylene Glycol (Polyethylene (Miralax) 17 Gm Pack) 17 gm PO DAILY PRN PRN Reason: Constipation Stop: 03/18/21 17:40 Prednisone (Prednisone 20 Mg Tab) 20 mg PO DAILY [facility]; Taper Stop: 03/02/21 17:40 Last Admin: 02/17/21 08:42 Dose: 20 mg Documented by: Thiamine HCl (Thiamine Hcl 100 Mg Tab) 100 mg PO [facility] Stop: 03/18/21 18:14 Last Admin: 02/17/21 08:42 Dose: 100 mg Documented by:
[2021-02-17] MEDS: ENOXAPARIN INJ 40 MG/0.4 ML SYR SQ SCH (22:04)
[2021-02-18] MEDS: PIPERACILLIN/TAZOBACTAM 3.375 GM in DEXTROSE 5% 100 ML IV SCH ×2 (01:08→07:44)
[2021-02-18] MEDS: PANTOprazole 40 MG TAB PO SCH (06:43)
[2021-02-18 08:34] LABS: Hematocrit (blood only) 35.8 % (42-52); Hemoglobin 11.9 g/dL (14.0-18.0); Mean Corpuscular Hemoglobin 31.6 pg (25-34); Mean Corpuscular Hgb Conc 33.2 g/dL (32-36); Mean Platelet Volume 9.1 fL (7.4-10.4); Platelet Count 186 K/uL (130-400); RDW Coefficient of Variation 14.1 % (11.5-14.5); RDW Standard Deviation 48.8 fL (36.4-46.3); Red Blood Count 3.77 M/uL (4.7-6.1); White Blood Count 7.71 K/uL (4.8-10.8)
[2021-02-18] MEDS: predniSONE 20 MG TAB PO SCH (08:37)
[2021-02-18] MEDS: FOLIC ACID 1 MG TAB PO SCH (08:37)
[2021-02-18] MEDS: THIAMINE HCL 100 MG TAB PO SCH (08:38)
[2021-02-18 09:02] LABS: BUN Creatinine Ratio 15.7 (10-20); Calcium 8.3 mg/dl (8.5-10.1); Creatinine Clr Calc Pharmacy 88.2 ml/min; Est GFR (African American) 93.7 ml/min; Est GFR (Non-African American) 80.9 ml/min; Magnesium 2.4 mg/dl (1.8-2.4); Phosphorus 2.5 mg/dl (2.5-4.9); Potassium 3.7 mmol/L (3.5-5.1)
--- NOTE | 2021-02-18 09:25 | Gastroenterology Progress Note ---
Date of Service February 18, 2021 Assessment & Plan (1) Ulcerative colitis: 60 year old male admitted generalized symptoms, blood culture growing gram negative, GI asked to evaluate for UC, due to transition to humira presently on Prednisone 20 mg daily Would continue abx Would continue with steroid taper as ordered Would bring home PO mesalamine Would recommend Humira start as an OP and cleared from infection continue with vaccine series as ordered Thank you for allowing us to participate in the care of this patient. Please call with any acute changes, questions or concerns. Please see addendum below with additional recommendation from my supervising physician. Admission and Anticipated Discharge Date Admission Date: February 16, 2021 Supervising Physician Co-Signing Physician Notes Attg add: I interviewed and examined pt, reviewed chart and labs. He remains without symptoms or complaint - no abd pain, formed and non bloody BM x 2 today. ID consult rec 2 week course ertapenem. Labs showed improved WBC. Etiology of GNR sepsis unclear - bacterial translocation in UC? pt reports heavy physical activity for 2 days prior to admit--> possible that he had ischemic colitis? Cont low dose pred with extended taper - pred 10 x 2 weeks then 5 x 2 weeks. Biologic will need to be deferred until abx completed. Because source of GNR sepsis is not clear, will request MRCP tomorrow to look for PSC- related cholangitis, although this seems unlikely with nl LFTs. Subjective No concerns verbalized Denies abd pain No nausea, vomiting No change in bowel habits Denies diarrhea or rectal bleeding GI called regarding + blood cultures Review of Systems Review of Systems: All systems reviewed & are unremarkable except as noted in HPI & below Physical Exam Constitutional: WD/WN, vitals as above well nourished; no acute distress and not ill appearing Neck: trachea midline, no thyromegaly Respiratory: normal respiratory effort, lungs clear to auscultation Cardiovascular: RRR, no murmur, no edema Gastrointestinal (Abdomen): normal bowel sounds, soft, nontender, no hepatosplenomegaly Results & Data ([facility]) Vital Signs (Past 12 Hours) Vital Signs Temp Pulse Pulse Resp BP Pulse Ox 02/18/21 07:29 36.6 C 67 76 18 117/73 96 02/18/21 04:22 36.6 C 82 20 113/70 92 02/17/21 23:31 36.7 C 83 20 123/74 96 Laboratory Results 02/18/21 02/18/21 Range/Units 08:06 08:06 WBC 7.71 (4.8-10.8) K/uL RBC 3.77 L (4.7-6.1) M/uL Hgb 11.9 L (14.0-18.0) g/dL Hct 35.8 L (42-52) % MCV 95.0 (80-100) fL MCH 31.6 (25-34) pg MCHC 33.2 (32-36) g/dL RDW Std Deviation 48.8 H (36.4-46.3) fL RDW Coeff of Riley 14.1 (11.5-14.5) % Plt Count 186 (130-400) K/uL MPV 9.1 (7.4-10.4) fL Sodium 140 (136-145) mmol/L Potassium 3.7 (3.5-5.1) mmol/L Chloride 110 H (98-107) mmol/L Carbon Dioxide 25 (21-32) mmol/L Anion Gap 5.0 (3-11) BUN 16 (7-18) mg/dl Creatinine 1.00 (0.6-1.4) mg/dl Est Cr Clr Drug Dosing 88.2 ml/min Est GFR ( Amer) 93.7 ml/min Est GFR (Non-Af Amer) 80.9 ml/min BUN/Creatinine Ratio 15.7 (10-20) Glucose 104 H (70-99) mg/dl Calcium 8.3 L (8.5-10.1) mg/dl Phosphorus 2.5 (2.5-4.9) mg/dl Magnesium 2.4 (1.8-2.4) mg/dl (1) Ulcerative colitis Digestive disease complication type: other complication Ulcerative colitis location: unspecified ulcerative colitis location Qualified Code(s): K51.918 - Ulcerative colitis, unspecified with other complication
[2021-02-18] MEDS: ERTAPENEM SODIUM 1,000 MG in SODIUM CHLORIDE 0.9% 50 ML IV SCH (12:48)
--- NOTE | 2021-02-18 16:23 | Hospitalist Progress Note ---
Date of Service February 18, 2021 Assessment & Plan (1) Sepsis: Presented to ER with shaking of hands/arms for about 10 to 15 minutes Similar symptoms 1 day prior to admission, received intravenous fluid and was sent home Blood culture developed ESBL bacteremia and likely source seems to be GI from: Started with intravenous Zosyn and that has been changed to intravenous ertapenem from 02/18/2021 Repeat blood cultures have been obtained No more episodes of shaking chills and the patient has been feeling better [facility] has been consulted (2) Bacteremia: ESBL and gram-positive bacilli in 1 out of 2 bottles Has been on Zosyn since admission Changed to intravenous ertapenem from 02/18/2021 (3) Ulcerative colitis: Recently placed on a steroid taper and is currently on prednisone 20 mg daily. [facility] consulted and is okay with continuing this in the setting of infection for now. Continue oral mesalamine, which notably has not been given as this is nonformulary. No acute symptoms of ulcerative colitis (4) Sinus tachycardia: Sinus tachycardia was likely an evolving sepsis on arrival and is now resolved. Resolved with control of infection (5) Alcohol dependence: Questionable alcohol dependence. Clinical picture was suspicious for this so he did receive a rude banana bag as well as IV Ativan in the ER yesterday. He did not score enough to receive Ativan overnight and appears to be fine today without any evidence of withdrawal. He continues on daily folic acid and thiamine supplementation. (6) HTN (hypertension): Continue holding losartan in the setting of relative hypotension (7) Chronic neck pain: Continue outpatient management for known chronic disease. (8) DVT prophylaxis: Lovenox Full Dispo-cont to monitor for improvement in the hospital. Patient wants to leave [facility]! Explained that we will need cultures to be speciated with sensitivities as well as definitive GI and ID recommendations prior to discharge. He and his verbalized understanding with intent to comply. Admission and Anticipated Discharge Date Admission Date: February 16, 2021 Subjective 02/18/2021 The patient was seen and examined in medical telemetry unit He was admitted with shaking chills with a history of ulcerative colitis He has been developing ESBL bacteremia likely source Colon Denies any specific symptoms Review of Systems Review of Systems: All systems reviewed and are unremarkable except as noted below Gastrointestinal: no abdominal pain, no change in bowel habits and no diarrhea/loose stools Physical Exam Physical Exam: Lying in bed comfortably but very anxious Constitutional: well developed, well nourished and + obese; not ill appearing Eyes: PERRL, conjunctivae normal, anicteric sclerae ENMT: external ear and nose normal, oropharynx normal Neck: trachea midline, no thyromegaly Respiratory: no respiratory distress Auscultation: lungs clear to auscultation bilaterally Cardiovascular: Rate/Rhythm: regular rate and regular rhythm Heart Sounds: no murmur Extremities: no edema Gastrointestinal (Abdomen): Inspection/Auscultation: normal bowel sounds; abdomen not distended Percussion/Palpation: abdomen soft; abdomen nontender Musculoskeletal: No acute arthritis in any joint Neurologic: Alert, awake and oriented x3. No focal sensory and motor deficit appreciated Psychiatric: A+Ox3, euthymic affect Lymphatic: no cervical or axillary lymphadenopathy Results & Data Results & Data ([facility]) Vital Signs (Past 12 Hours) Vital Signs Temp Pulse Pulse Resp BP Pulse Ox 02/18/21 15:12 36.7 C 89 18 120/73 95 02/18/21 15:04 85 02/18/21 07:29 36.6 C 67 76 18 117/73 96 02/18/21 04:22 36.6 C 82 20 113/70 92 Laboratory Results Short CBC 02/18/21 Range/Units 08:06 WBC 7.71 (4.8-10.8) K/uL Hgb 11.9 L (14.0-18.0) g/dL Hct 35.8 L (42-52) % Plt Count 186 (130-400) K/uL BMP 02/18/21 08:06 Sodium 140 Potassium 3.7 Chloride 110 H Carbon Dioxide 25 BUN 16 Creatinine 1.00 Glucose 104 H Calcium 8.3 L Medications Administered Current Inpatient Medications Acetaminophen (Acetaminophen 325 Mg Tab) 650 mg PO Q4H PRN PRN Reason: Pain or Fever Stop: 03/18/21 17:40 Al Hydrox/Mg Hydrox/Simethicone (Aluminum/Magnesium Susp 30 Ml Udc) 15 ml PO Q4H PRN PRN Reason: Dyspepsia Stop: 03/18/21 17:40 Dicyclomine HCl (Dicyclomine Hcl 20 Mg Tab) 20 mg PO QID PRN PRN Reason: Abdominal Pain Stop: 03/18/21 17:40 Enoxaparin Sodium (Enoxaparin Inj 40 Mg/0.4 Ml Syr) 40 mg SQ HS [facility] Stop: 03/19/21 20:59 Last Admin: 02/17/21 22:04 Dose: Not Given Documented by: Folic Acid (Folic Acid 1 Mg Tab) 1 mg PO QAM [facility] Stop: 03/18/21 18:29 Last Admin: 02/18/21 08:37 Dose: 1 mg Documented by: Lorazepam (Ativan) 1 mg in 2 mls @ 2 mls/min IV UD PRN; Protocol PRN Reason: EtOH Withdrawl AWSS Score 6,7 Stop: 03/18/21 17:40 Lorazepam (Ativan) 2 mg in 4 mls @ 4 mls/min IV UD PRN; Protocol PRN Reason: EtOH Withdrawl AWSS Score 8,9 Stop: 03/18/21 17:40 Lorazepam (Ativan) 3 mg in 6 mls @ 4 mls/min IV ONCE PRN; Protocol PRN Reason: EtOH Withdrawl AWSS Score >=10 Stop: 03/18/21 17:40 Ertapenem 1,000 mg/ Sodium (Chloride) 60 mls @ 100 mls/hr IV Q24H [facility] Stop: 03/04/21 11:59 Last Infusion: 02/18/21 13:24 Dose: Infused Documented by: Magnesium Hydroxide (Magnesium Hydroxide Susp 30 Ml Udc) 30 ml PO Q12H PRN PRN Reason: Constipation Stop: 03/18/21 17:40 Mesalamine (Mesalamine 0.375gm 1 Ea) 1 ea PO QID [facility] Stop: 03/20/21 16:59 Ondansetron HCl (Ondansetron Inj 2 Mg/Ml 2 Ml Vial) 4 mg IV Q6H PRN PRN Reason: Nausea Stop: 03/18/21 17:40 Pantoprazole Sodium (Pantoprazole 40 Mg Tab) 40 mg PO DAILYBB [facility]; Protocol Stop: 03/19/21 06:29 Last Admin: 02/18/21 06:43 Dose: 40 mg Documented by: Polyethylene Glycol (Polyethylene (Miralax) 17 Gm Pack) 17 gm PO DAILY PRN PRN Reason: Constipation Stop: 03/18/21 17:40 Prednisone (Prednisone 20 Mg Tab) 20 mg PO DAILY [facility]; Taper Stop: 03/02/21 17:40 Last Admin: 02/18/21 08:37 Dose: 20 mg Documented by: Thiamine HCl (Thiamine Hcl 100 Mg Tab) 100 mg PO [facility] Stop: 03/18/21 18:14 Last Admin: 02/18/21 08:38 Dose: 100 mg Documented by: (1) Ulcerative colitis Digestive disease complication type: other complication Ulcerative colitis location: unspecified ulcerative colitis location Qualified Code(s): K51.918 - Ulcerative colitis, unspecified with other complication
[2021-02-18] MEDS: MESALAMINE 0.375 GM PO SCH ×2 (17:22→20:05)
[2021-02-18] MEDS: ENOXAPARIN INJ 40 MG/0.4 ML SYR SQ SCH (20:06)
[2021-02-19] MEDS: PANTOprazole 40 MG TAB PO SCH (05:47)
[2021-02-19 07:23] LABS: Basophils # (auto) 0.01 K/uL (0-0.2); Basophils % (auto) 0.1 %; Eosinophils % (auto) 1.2 %; Hematocrit (blood only) 37.4 % (42-52); Hemoglobin 12.7 g/dL (14.0-18.0); Immature Granulocytes # (auto) 0.02 K/uL (0.00-0.02); Immature Granulocytes % (auto) 0.2 %; Lymphocytes # (auto) 2.64 K/uL (1.2-3.4); Lymphocytes % (auto) 30.7 %; Mean Corpuscular Hemoglobin 31.5 pg (25-34); Mean Corpuscular Volume 92.8 fL (80-100); Monocytes # (auto) 0.73 K/uL (0.11-0.59); Monocytes % (auto) 8.5 %; Neutrophils # (auto) 5.09 K/uL (1.4-6.5); Neutrophils % (auto) 59.3 %; Platelet Count 201 K/uL (130-400); RDW Coefficient of Variation 13.9 % (11.5-14.5); Red Blood Count 4.03 M/uL (4.7-6.1); White Blood Count 8.59 K/uL (4.8-10.8)
[2021-02-19 07:57] LABS: Albumin Level 2.6 gm/dl (3.4-5.0); BUN Creatinine Ratio 21.6 (10-20); Calcium 8.3 mg/dl (8.5-10.1); Creatinine Clr Calc Pharmacy 88.8 ml/min; Est GFR (African American) 96.1 ml/min; Est GFR (Non-African American) 82.9 ml/min; Magnesium 2.3 mg/dl (1.8-2.4); Potassium 3.8 mmol/L (3.5-5.1)
[2021-02-19 08:00] LABS: Albumin Globulin Ratio 0.7 (0.9-2); Bilirubin,Total 0.4 mg/dl (0.2-1); Globulin 3.7 gm/dl (2.5-4.0); Phosphorus 2.9 mg/dl (2.5-4.9); Total Protein 6.3 gm/dl (6.4-8.2)
[2021-02-19] MEDS: THIAMINE HCL 100 MG TAB PO SCH (09:27)
[2021-02-19] MEDS: FOLIC ACID 1 MG TAB PO SCH (09:27)
[2021-02-19] MEDS: MESALAMINE 0.375 GM PO SCH ×4 (09:28→21:02)
[2021-02-19] MEDS: predniSONE 10 MG TABLET PO SCH (09:31)
--- NOTE | 2021-02-19 10:14 | Gastroenterology Progress Note ---
Date of Service February 19, 2021 Assessment & Plan (1) Ulcerative colitis: 60 year old male admitted generalized symptoms, ESBL and gram-positive bacilli in 1 out of 2 bottles on IV ertapenem from 02/18/2021 Would continue abx Would continue with steroid taper as ordered Would bring home PO mesalamine Would recommend Humira start as an OP and cleared from infection Continue with vaccine series as ordered Recall as needed. Thank you for allowing us to participate in the care of this patient. Please call with any acute changes, questions or concerns. Please see addendum below with additional recommendation from my supervising physician. Attg add: I interviewed and examined pt, reviewed chart and labs. Pt without complaint, labs show improved WBC. Plan MRCP today r/o PSC, other recs as above. Please re-consult as needed. Admission and Anticipated Discharge Date Admission Date: February 16, 2021 Subjective Offers no concerns this AM No abd pain, nausea, vomiting. Moving bowels well - formed stools w/o black or bloody output Was evaluated by ID yesterday Review of Systems Review of Systems: All systems reviewed & are unremarkable except as noted in HPI & below Physical Exam Constitutional: WD/WN, vitals as above well nourished; no acute distress and not ill appearing Neck: trachea midline, no thyromegaly Respiratory: normal respiratory effort, lungs clear to auscultation Cardiovascular: RRR, no murmur, no edema Gastrointestinal (Abdomen): normal bowel sounds, soft, nontender, no hepatosplenomegaly Results & Data ([facility]) Vital Signs (Past 12 Hours) Vital Signs Temp Pulse Pulse Resp BP Pulse Ox 02/19/21 07:32 80 02/19/21 07:29 36.8 C 84 19 151/93 H 95 02/19/21 04:00 36.7 C 81 18 135/76 97 02/19/21 02:58 83 02/18/21 23:36 36.7 C 81 18 139/86 96 (1) Ulcerative colitis Digestive disease complication type: other complication Ulcerative colitis location: unspecified ulcerative colitis location Qualified Code(s): K51.918 - Ulcerative colitis, unspecified with other complication
[2021-02-19] MEDS: ERTAPENEM SODIUM 1,000 MG in SODIUM CHLORIDE 0.9% 50 ML IV SCH (12:36)
--- NOTE | 2021-02-19 14:04 | Hospitalist Progress Note ---
Date of Service February 19, 2021 Assessment & Plan (1) Sepsis: Presented to ER with shaking of hands/arms for about 10 to 15 minutes Similar symptoms 1 day prior to admission, received intravenous fluid and was sent home Blood culture developed ESBL bacteremia and likely source seems to be GI from: Started with intravenous Zosyn and that has been changed to intravenous ertapenem from 02/18/2021 Repeat blood cultures have been obtained No more episodes of shaking chills and the patient has been feeling better Appreciate ID input and recommendation Will have ertapenem 1 g daily till 03/03/2021 Weekly CBC and BMP Likely be discharged this afternoon (2) Bacteremia: ESBL and gram-positive bacilli in 1 out of 2 bottles Has been on Zosyn since admission Changed to intravenous ertapenem from 02/18/2021 Repeat blood culture grew 1 out of 2 gram-positive cocci in clusters but the PCR for staph aureus and MRSA were negative Discussed with the ID specialist-no more additional or change of antibiotic (3) Ulcerative colitis: Recently placed on a steroid taper and is currently on prednisone 20 mg daily. [facility] consulted and is okay with continuing this in the setting of infection for now. Continue oral mesalamine, which notably has not been given as this is nonformulary. No acute symptoms of ulcerative colitis He can start Humira after discontinuation of the antibiotic He will need to have Bactrim DS 1 tablet 2 times a week if he requires prednisone at the current dose for more than 3 months (4) Sinus tachycardia: Sinus tachycardia was likely an evolving sepsis on arrival and is now resolved. Resolved with control of infection (5) Alcohol dependence: Questionable alcohol dependence. Clinical picture was suspicious for this so he did receive a rude banana bag as well as IV Ativan in the ER yesterday. He did not score enough to receive Ativan overnight and appears to be fine today without any evidence of withdrawal. He continues on daily folic acid and thiamine supplementation. (6) HTN (hypertension): Continue holding losartan in the setting of relative hypotension (7) Chronic neck pain: Continue outpatient management for known chronic disease. (8) DVT prophylaxis: Lovenox Full Dispo-cont to monitor for improvement in the hospital. Patient wants to leave [place]! Explained that we will need cultures to be speciated with sensitivities as well as definitive GI and ID recommendations prior to discharge. He and his verbalized understanding with intent to comply. Discussed with the in detail and answered all of her questions Likely discharge this afternoon Admission and Anticipated Discharge Date Admission Date: February 16, 2021 Subjective 02/18/2021 The patient was seen and examined in medical telemetry unit He was admitted with shaking chills with a history of ulcerative colitis He has been developing ESBL bacteremia likely source Colon Denies any specific symptoms 02/19/2021 The patient was seen and examined in medical telemetry unit He has been feeling much better immediately following admission Denies any symptoms of abdominal pain, nausea and or vomiting No fever and/or chills and no shaking Review of Systems Review of Systems: All systems reviewed and are unremarkable except as noted below Physical Exam Physical Exam: Lying in bed comfortably but very anxious Constitutional: well developed, well nourished and + obese; not ill appearing Eyes: PERRL, conjunctivae normal, anicteric sclerae ENMT: external ear and nose normal, oropharynx normal Neck: trachea midline, no thyromegaly Respiratory: no respiratory distress Auscultation: lungs clear to auscultation bilaterally Cardiovascular: Rate/Rhythm: regular rate and regular rhythm Heart Sounds: no murmur Extremities: no edema Gastrointestinal (Abdomen): Inspection/Auscultation: normal bowel sounds; abdomen not distended Percussion/Palpation: abdomen soft; abdomen nontender Musculoskeletal: No acute arthritis in any joint Neurologic: Alert, awake and oriented x3. No focal sensory and motor deficit appreciated Psychiatric: A+Ox3, euthymic affect Lymphatic: no cervical or axillary lymphadenopathy Results & Data Results & Data ([facility]) Vital Signs (Past 12 Hours) Vital Signs Temp Pulse Pulse Resp BP Pulse Ox 02/19/21 11:07 36.5 C 89 17 144/86 H 98 02/19/21 07:32 80 02/19/21 07:29 36.8 C 84 19 151/93 H 95 02/19/21 04:00 36.7 C 81 18 135/76 97 02/19/21 02:58 83 Laboratory Results Short CBC 02/19/21 Range/Units 07:08 WBC 8.59 (4.8-10.8) K/uL Hgb 12.7 L (14.0-18.0) g/dL Hct 37.4 L (42-52) % Plt Count 201 (130-400) K/uL BMP 02/19/21 07:08 Sodium 141 Potassium 3.8 Chloride 110 H Carbon Dioxide 27 BUN 21 H Creatinine 0.98 Glucose 90 Calcium 8.3 L Liver Function 02/19/21 Range/Units 07:08 Total Bilirubin 0.4 (0.2-1) mg/dl AST 12 L (15-37) U/L ALT 33 (12-78) U/L Alkaline Phosphatase 76 (45-117) U/L Albumin 2.6 L (3.4-5.0) gm/dl Medications Administered Current Inpatient Medications Acetaminophen (Acetaminophen 325 Mg Tab) 650 mg PO Q4H PRN PRN Reason: Pain or Fever Stop: 03/18/21 17:40 Al Hydrox/Mg Hydrox/Simethicone (Aluminum/Magnesium Susp 30 Ml Udc) 15 ml PO Q4H PRN PRN Reason: Dyspepsia Stop: 03/18/21 17:40 Dicyclomine HCl (Dicyclomine Hcl 20 Mg Tab) 20 mg PO QID PRN PRN Reason: Abdominal Pain Stop: 03/18/21 17:40 Enoxaparin Sodium (Enoxaparin Inj 40 Mg/0.4 Ml Syr) 40 mg SQ HS [facility] Stop: 03/19/21 20:59 Last Admin: 02/18/21 20:06 Dose: 40 mg Documented by: Folic Acid (Folic Acid 1 Mg Tab) 1 mg PO QAM [facility] Stop: 03/18/21 18:29 Last Admin: 02/19/21 09:27 Dose: 1 mg Documented by: Lorazepam (Ativan) 1 mg in 2 mls @ 2 mls/min IV UD PRN; Protocol PRN Reason: EtOH Withdrawl AWSS Score 6,7 Stop: 03/18/21 17:40 Lorazepam (Ativan) 2 mg in 4 mls @ 4 mls/min IV UD PRN; Protocol PRN Reason: EtOH Withdrawl AWSS Score 8,9 Stop: 03/18/21 17:40 Lorazepam (Ativan) 3 mg in 6 mls @ 4 mls/min IV ONCE PRN; Protocol PRN Reason: EtOH Withdrawl AWSS Score >=10 Stop: 03/18/21 17:40 Ertapenem 1,000 mg/ Sodium (Chloride) 60 mls @ 100 mls/hr IV Q24H [facility] Stop: 03/04/21 11:59 Last Infusion: 02/19/21 13:33 Dose: Infused Documented by: Losartan Potassium (Losartan Potassium 50 Mg Tab) 50 mg PO HS [facility] Stop: 03/21/21 20:59 Magnesium Hydroxide (Magnesium Hydroxide Susp 30 Ml Udc) 30 ml PO Q12H PRN PRN Reason: Constipation Stop: 03/18/21 17:40 Mesalamine (Mesalamine 0.375gm 1 Ea) 1 ea PO QID [facility] Stop: 03/20/21 16:59 Last Admin: 02/19/21 12:35 Dose: 1 ea Documented by: Ondansetron HCl (Ondansetron Inj 2 Mg/Ml 2 Ml Vial) 4 mg IV Q6H PRN PRN Reason: Nausea Stop: 03/18/21 17:40 Pantoprazole Sodium (Pantoprazole 40 Mg Tab) 40 mg PO DAILYBB [facility]; Protocol Stop: 03/19/21 06:29 Last Admin: 02/19/21 05:47 Dose: 40 mg Documented by: Polyethylene Glycol (Polyethylene (Miralax) 17 Gm Pack) 17 gm PO DAILY PRN PRN Reason: Constipation Stop: 03/18/21 17:40 Prednisone (Prednisone 10 Mg Tablet) 10 mg PO DAILY [facility] Stop: 03/21/21 08:59 Last Admin: 02/19/21 09:31 Dose: 10 mg Documented by: Thiamine HCl (Thiamine Hcl 100 Mg Tab) 100 mg PO QAM [facility] Stop: 03/18/21 18:14 Last Admin: 02/19/21 09:27 Dose: 100 mg Documented by: (1) Ulcerative colitis Digestive disease complication type: other complication Ulcerative colitis location: unspecified ulcerative colitis location Qualified Code(s): K51.918 - Ulcerative colitis, unspecified with other complication
[2021-02-19 20:02] LABS: Babesia microti IgG <1:64 titer (<1:64)
[2021-02-19] MEDS ORDERED: LORazepam 0.5 MG TAB PO STA (20:28)
[2021-02-19] MEDS: ENOXAPARIN INJ 40 MG/0.4 ML SYR SQ SCH (21:00)
[2021-02-19] MEDS ORDERED: LOSARTAN POTASSIUM 50 MG TAB PO SCH (21:00)
[2021-02-19] MEDS ORDERED: LORazepam 0.5 MG TAB ONE (23:00)
[2021-02-20] MEDS: PANTOprazole 40 MG TAB PO SCH (05:48)
[2021-02-20] MEDS: MESALAMINE 0.375 GM PO SCH ×2 (08:20→11:56)
[2021-02-20] MEDS: FOLIC ACID 1 MG TAB PO SCH (08:20)
[2021-02-20] MEDS: predniSONE 10 MG TABLET PO SCH (08:20)
[2021-02-20] MEDS: THIAMINE HCL 100 MG TAB PO SCH (08:21)
--- NOTE | 2021-02-20 09:47 | Gastroenterology Progress Note ---
Date of Service February 20, 2021 Assessment & Plan (1) Bacteremia: 60 year old male admitted generalized symptoms, ESBL and gram-positive bacilli in 1 out of 2 bottles on IV ertapenem from 02/18/2021 No GI contraindication to diet and discharge Review MRCP once able Would continue abx Would continue with steroid taper as ordered Would bring home PO mesalamine Would recommend Humira start as an OP and cleared from infection Continue with vaccine series as ordered Att add: Pt without complaints, benign abd exam. A/P: GNR sepsis - presumably bact translocation from IBD/?ischemic colitis. Empiric abx per ID service IBD - Pred 10 daily x 1 week, then 5 daily x 1 week; defer Humira until abx resolved. Admission and Anticipated Discharge Date Admission Date: February 16, 2021 Subjective Feeling well No concerns this AM Just wants to get home Denies abd pain, nausea,vomiting, diarrhea or rectal bleeding MRCP: pending Review of Systems Review of Systems: All systems reviewed & are unremarkable except as noted in HPI & below Physical Exam 2 Constitutional: WD/WN, vitals as above no acute distress and not ill appearing Gastrointestinal (Abdomen): normal bowel sounds, soft, nontender, no hepatosplenomegaly Results & Data ([facility]) Vital Signs (Past 12 Hours) Vital Signs Temp Pulse Pulse Pulse Resp BP BP 02/20/21 07:22 36.5 C 85 18 139/87 02/20/21 06:24 85 02/20/21 03:34 36.6 C 78 18 127/81 02/19/21 23:06 36.5 C 83 16 156/83 H 02/19/21 22:20 76 Pulse Ox 02/20/21 07:22 97 02/20/21 06:24 02/20/21 03:34 98 02/19/21 23:06 97 02/19/21 22:20
--- NOTE | 2021-02-20 11:04 | Magnetic Resonance Report ---
MRCP CLINICAL HISTORY: + blood cultures, history of UC rule out psc TECHNIQUE: Utilizing a 1.5 Glenys magnet and dedicated coil, multiplanar, multiecho imaging of the upp er abdomen was performed utilizing heavily T2 weighted pulsing sequences without IV contrast. COMPARISON STUDY: No previous studies for comparison. FINDINGS: Liver is normal in size and parenchymal signal without evidence of focal lesions or intrahepatic bili kali dilatation. Gallbladder is fluid-filled without evidence of intraluminal filling defect to suggest gallstones. Cy stic and common bile ducts are normal in caliber without intraluminal defect to suggest obstructive c alculi. Focal area of decreased signal within cystic duct is most likely artifactual. Spleen and bilateral adrenal glands are unremarkable. No evidence of hydronephrosis. 1.2 cm high T2 s ignal lesion is seen within right renal cortex likely representing cyst. Visualized loops of bowel are nondilated. Aorta is normal in caliber. No significant abnormalities within visualized spine are seen. IMPRESSION: 1. No intrahepatic biliary dilatation is seen. 2. Gallbladder and extrahepatic biliary tree are normal. 3. Right renal cyst. ACT 112: Negative or not required by law. The above report was generated using voice recognition software. It may contain grammatical, syntax o r spelling errors. Electronically signed by: Caitlin Hummel DO 02/20/2021 11:03 AM
[2021-02-20] MEDS: ERTAPENEM SODIUM 1,000 MG in SODIUM CHLORIDE 0.9% 50 ML IV SCH (11:12)
--- NOTE | 2021-02-20 11:32 | Hospitalist Progress Note ---
Date of Service February 20, 2021 Assessment & Plan (1) Sepsis: Presented to ER with shaking of hands/arms for about 10 to 15 minutes Similar symptoms 1 day prior to admission, received intravenous fluid and was sent home Blood culture developed ESBL bacteremia and likely source seems to be GI from: Started with intravenous Zosyn and that has been changed to intravenous ertapenem from 02/18/2021 Repeat blood cultures have been obtained No more episodes of shaking chills and the patient has been feeling better Appreciate ID input and recommendation Will have ertapenem 1 g daily till 03/03/2021 Weekly CBC and BMP Likely be discharged this afternoon (2) Bacteremia: ESBL and gram-positive bacilli in 1 out of 2 bottles Has been on Zosyn since admission Changed to intravenous ertapenem from 02/18/2021 Repeat blood culture grew 1 out of 2 gram-positive cocci in clusters but the PCR for staph aureus and MRSA were negative Discussed with the ID specialist-no more additional or change of antibiotic (3) Ulcerative colitis: Recently placed on a steroid taper and is currently on prednisone 20 mg daily. [facility] consulted and is okay with continuing this in the setting of infection for now. Continue oral mesalamine, which notably has not been given as this is nonformulary. No acute symptoms of ulcerative colitis He can start Humira after discontinuation of the antibiotic He will need to have Bactrim DS 1 tablet 2 times a week if he requires prednisone at the current dose for more than 3 months (4) Sinus tachycardia: Sinus tachycardia was likely an evolving sepsis on arrival and is now resolved. Resolved with control of infection (5) Alcohol dependence: Questionable alcohol dependence. Clinical picture was suspicious for this so he did receive a rude banana bag as well as IV Ativan in the ER yesterday. He did not score enough to receive Ativan overnight and appears to be fine today without any evidence of withdrawal. He continues on daily folic acid and thiamine supplementation. (6) HTN (hypertension): Continue holding losartan in the setting of relative hypotension (7) Chronic neck pain: Continue outpatient management for known chronic disease. (8) DVT prophylaxis: Lovenox Full Dispo-cont to monitor for improvement in the hospital. Patient wants to leave [place]! Explained that we will need cultures to be speciated with sensitivities as well as definitive GI and ID recommendations prior to discharge. He and his verbalized understanding with intent to comply. Discussed with the in detail and answered all of her questions Likely discharge this afternoon Admission and Anticipated Discharge Date Admission Date: February 16, 2021 Subjective 02/18/2021 The patient was seen and examined in medical telemetry unit He was admitted with shaking chills with a history of ulcerative colitis He has been developing ESBL bacteremia likely source Colon Denies any specific symptoms 02/19/2021 The patient was seen and examined in medical telemetry unit He has been feeling much better immediately following admission Denies any symptoms of abdominal pain, nausea and or vomiting No fever and/or chills and no shaking Review of Systems Review of Systems: All systems reviewed and are unremarkable except as noted below Physical Exam Physical Exam: Lying in bed comfortably but very anxious Constitutional: well developed, well nourished and + obese; not ill appearing Eyes: PERRL, conjunctivae normal, anicteric sclerae ENMT: external ear and nose normal, oropharynx normal Neck: trachea midline, no thyromegaly Respiratory: no respiratory distress Auscultation: lungs clear to auscultation bilaterally Cardiovascular: Rate/Rhythm: regular rate and regular rhythm Heart Sounds: no murmur Extremities: no edema Gastrointestinal (Abdomen): Inspection/Auscultation: normal bowel sounds; abdomen not distended Percussion/Palpation: abdomen soft; abdomen nontender Psychiatric: A+Ox3, euthymic affect Lymphatic: no cervical or axillary lymphadenopathy Results & Data Results & Data ([facility]) Vital Signs (Past 12 Hours) Vital Signs Temp Pulse Pulse Resp BP BP Pulse Ox 02/20/21 07:22 36.5 C 85 18 139/87 97 02/20/21 06:24 85 02/20/21 03:34 36.6 C 78 18 127/81 98 (1) Ulcerative colitis Digestive disease complication type: other complication Ulcerative colitis location: unspecified ulcerative colitis location Qualified Code(s): K51.918 - Ulcerative colitis, unspecified with other complication
--- NOTE | 2021-02-21 08:12 | Discharge Summary ---
Date of Service February 21, 2021 Admission HPI Per Admitting Provider This is a 60-year-old male who has significant past medical history of ulcerative colitis, hiatal hernia, chronic neck pain, HTN, HLD who presents to ED secondary to uncontrolled shaking of hands/arms x10 to 15 minutes prior to arrival. Patient was seen and examined in ER for similar symptoms yesterday. He was felt to be dehydrated and received IV fluid. He was also found to have hypomagnesemia and hypophosphatemia and electrolytes were repleted. He was discharged home and felt better. He states this morning he got up and started drinking his morning coffee. He was just sitting at the table when his bilatera l arms and hands started tremoring uncontrollably. He also felt pins and needle sensation to finger pads. He decided to climb onto his recliner, lay down, across his arms and get under a blanket. This seemed to help with the shaking minimally. He opted to return to ED for further evaluation. Symptoms lasted approximately 10 to 15 minutes and resolved as he was arriving to ED. is at bedside who witnessed both events. 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 Yesterday prior to his event he had 1 bottle of water, coffee and half a piece of toast. This morning he only started with his coffee. During this event he denies any loss of consciousness, falling, lightheadedness, dizziness, chest pain, shortness breath, palpitations, diaphoresis, nausea, vomiting, abdominal pain, loss of bowel or bladder. He admits to this happening several years ago but does not remember exactly what happened. Prior to these 2 tremor episodes he otherwise feels he has been doing well. Over the last month he has lost approximately 20 pounds unintentional but attributes this to working outside. He denies any recent fever, chills, sweats, URI symptoms, cough, hemoptysis, melena, hematochezia or constipation. Patient does suffer from ulcerative colitis has been following with gastroenterology. On 01/24 he underwent flex sigmoidoscopy which revealed chronic active colitis with crypt abscess. Earlier in December he was experiencing bloody diarrhea and was started on a prednisone taper. He initially started at 40 mg daily for 1 week. He is currently on 20 mg daily. He also recently has been approved for Humira and is going to be starting that for ulcerative colitis flare. He denies any bloody bowel movements. He has approximately 2 bowel movements daily which are loose. He denies any change in bowel habits or abdominal pain. Earlier in December he also got tested for C. difficile and stool culture which was negative. In ED patient remained tachycardic and blood pressure fluctuating on lower side. In ED initially patient was tachycardic with heart rates in the 130s. He was ordered initially IV metoprolol due to concern for possible atrial flutter which and then dropped his blood pressure. He also was started on IV fluid. Lab work-up did reveal hypophosphatemia at 2.1 which is improved from yesterday at 1.4, stable anemia at 13.0 and 39.4, BUN 16, creatinine 1.08. Ethyl alcohol was negative. Chest CTA was negative for PE CT abdomen pelvis revealed mild to moderate bowel wall thickening of descending colon and sigmoid colon favoring a nonspecific colitis likely inflammatory or infectious. Admission Exam Per Admitting Provider Physical Exam: Constitutional: WD/WN, male, red facies, vitals as above, NAD, sitting up in bed, pleasant, conversing easily Head: Normocephalic, Atraumatic Eyes: PERRL, conjunctivae normal, anicteric sclerae ENMT: external ear and nose normal, oropharynx normal Neck: trachea midline, no thyromegaly normal visual inspection Respiratory: normal respiratory effort, lungs clear to auscultation, no wheeze, rales, rhonchi. Normal insp/exp effort, no accessory muscle use Cardiovascular: Tachycardic rate, regular rhythm, no murmur, no edema Vessels: no JVD or carotid bruit Chest: normal inspection of chest Abdomen: Distended protuberant abdomen, normal bowel sounds, soft, nontender, no hepatosplenomegaly Musculoskeletal: no cyanosis or clubbing, extremities motor strength 5/5 , very mild tremor to left hand when arms fully extended, no asterixis Skin: no rashes, warm and dry normal turgor Neurologic: PERRL, EOMI, accommodation nl, no face palsy, no dysarthria CN's II-XI intact bilaterally and moves all extremities Psychiatric: A+Ox3, euthymic affect Lymphatic: no cervical or axillary lymphadenopathy : deferred Principal Diagnosis Sepsis secondary to ESBL bacteremia, ulcerative colitis, hypertension Discharge Exam Constitutional well developed, well nourished and + obese; not ill appearing Eyes PERRL, conjunctivae normal, anicteric sclerae ENMT external ear and nose normal, oropharynx normal Neck trachea midline, no thyromegaly Respiratory no respiratory distress Auscultation: lungs clear to auscultation bilaterally Cardiovascular Rate/Rhythm: regular rate and regular rhythm Heart Sounds: no murmur Extremities: no edema Gastrointestinal (Abdomen) Inspection/Auscultation: normal bowel sounds; abdomen not distended Percussion/Palpation: abdomen soft; abdomen nontender Psychiatric A+Ox3, euthymic affect Lymphatic no cervical or axillary lymphadenopathy Discharge Data Allergies Allergy/AdvReac Type Severity Reaction Status Date / Time latex Allergy Intermediate RASH Verified 02/16/21 12:26 morphine Allergy Intermediate HIVES Verified 02/16/21 12:26 Consultations 02/16/21 15:14 ED Decision to Admit Stat 02/16/21 17:41 Consult Gastroenterology Routine 02/17/21 19:46 Consult Infectious Diseases Routine Ordered Studies 02/16/21 11:46 CT abd pelvis oral and IV con Stat 02/16/21 13:16 CT angio chest PE protocol Stat 02/19/21 11:43 MR MRCP Routine Hospital Course (1) Sepsis: Presented to ER with shaking of hands/arms for about 10 to 15 minutes Similar symptoms 1 day prior to admission, received intravenous fluid and was sent home Blood culture developed ESBL bacteremia and likely source seems to be GI from: Started with intravenous Zosyn and that has been changed to intravenous ertapenem from 02/18/2021 Repeat blood cultures have been obtained No more episodes of shaking chills and the patient has been feeling better Appreciate ID input and recommendation Will have ertapenem 1 g daily till 03/03/2021 Weekly CBC and BMP Likely be discharged this afternoon (2) Bacteremia: ESBL and gram-positive bacilli in 1 out of 2 bottles Has been on Zosyn since admission Changed to intravenous ertapenem from 02/18/2021 Repeat blood culture grew 1 out of 2 gram-positive cocci in clusters but the PCR for staph aureus and MRSA were negative Discussed with the ID specialist-no more additional or change of antibiotic (3) Ulcerative colitis: Recently placed on a steroid taper and is currently on prednisone 20 mg daily. [facility] consulted and is okay with continuing this in the setting of infection for now. Continue oral mesalamine, which notably has not been given as this is nonformulary. No acute symptoms of ulcerative colitis He can start Humira after discontinuation of the antibiotic He will need to have Bactrim DS 1 tablet 2 times a week if he requires prednisone at the current dose for more than 3 months (4) Sinus tachycardia: Sinus tachycardia was likely an evolving sepsis on arrival and is now resolved. Resolved with control of infection (5) Alcohol dependence: Questionable alcohol dependence. Clinical picture was suspicious for this so he did receive a rude banana bag as well as IV Ativan in the ER yesterday. He did not score enough to receive Ativan overnight and appears to be fine today without any evidence of withdrawal. He continues on daily folic acid and thiamine supplementation. (6) HTN (hypertension): Continue holding losartan in the setting of relative hypotension (7) Chronic neck pain: Continue outpatient management for known chronic disease. (8) DVT prophylaxis: Lovenox Full Dispo-cont to monitor for improvement in the hospital. Patient wants to leave [facility]! Explained that we will need cultures to be speciated with sensitivities as well as definitive GI and ID recommendations prior to discharge. He and his verbalized understanding with intent to comply. Discussed with the in detail and answered all of her questions Likely discharge this afternoon Total Time Total Time Spent Total Time Spent (In Minutes): 35 minutes Total Time Includes: Examination of the Patient, Discharge Planning, Medication Reconciliation and Communication With Other Providers Discharge Plan Discharge Items Patient Disposition: Home - Self-Care Reason For Visit: ELECTROLYTE ABNORMALITY Discharge Diagnosis: Sepsis secondary to ESBL bacteremia, ulcerative colitis, hypertension Condition on Discharge: Good Activity: Resume your previous activity Non-emergency contact: Primary Care Provider Call non-emergency contact if: you have any medication questions and your symptoms worsen Follow-up/Referrals: Benjamin Blue MD [Primary Care Provider] - (Date & Time 02/24/2021 9:00 AM Provider Gissel Pop MD Department General Internal Medicine [facility] ) Diet: Regular Addtl Attending Provider Instructions: Please take precaution to avoid falls Finish your course of antibiotic Try not to do any hard work until the antibiotic course is done Please keep appointments with 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 Pending Studies at Discharge: Yes Studies:: Final blood culture Stand-Alone Forms: My [facility], Smoking Cessation Medications and DC Order Prescriptions: New thiamine HCl (vitamin B1) [Vitamin B-1] 100 mg Tablet 100 mg PO QAM 30 Days Qty: 30 RF: 0 folic acid 1 mg Tablet 1 mg PO QAM 30 Days Qty: 30 RF: 0 Lactinex 1 million cell tablet,chewable 1 tab PO BID Qty: 30 RF: 0 Continued mesalamine 0.375 gram capsule,extended release 24hr 0.375 g PO QID RF: 0 losartan 50 mg tablet 50 mg PO HS RF: 0 prednisone 10 mg tablet 10 mg PO UD RF: 0 dicyclomine 20 mg tablet 20 mg PO QID PRN (Reason: Abdominal Pain) RF: 0 omeprazole 20 mg capsule,delayed release(DR/EC) 20 mg PO DAILYBB RF: 0 Discharge Orders: Discharge Order (Routine); Ordered 02/20/21 Ordered By: Jarrett Xiong/Other Patient Handouts: Weight Management: Healthy Eating, Colitis Ulcerative Lifestyle, Healthy Eating on the Go Admission Data Admit Date/Time: 02/16/21 15:43 Attending Provider: Jarrett Suarez Admit Provider: Yael Phillips Primary Care Provider: Benjamin Blue Other Providers: Yael Phillips ; Huong Maria Carlos M. ; Cirilo Selby ; Jose Ramsey I. ; Rico Moody II ; Radha Russo ; Catrachito Garcias Other Interventions: Discharge Summary Assessment (RN) Last Done: 02/20/21 11:32
== END 2021-02-20 12:27 | disposition home or self-care (01) | DRG 872 ==
LOC: ED 10:26 → SUATTDRO 15:43 → 2N 15:43 → 2W 02-18 11:42